=== PATIENT | female | born 1940 | race Caucasian/White ===

== ENCOUNTER 2020-12-30 12:28 | Emergency (ER) | payer MEDICARE, OTHER, SELFPAY ==
[2020-12-30 12:34] VITALS: BP 137/68; PULSE 76; RESP 18; TEMP 36.7; O2SAT 95
[2020-12-30 15:45] VITALS: BP 168/121; PULSE 88; O2SAT 98
--- NOTE | 2020-12-30 15:54 | CTR_ITS ---
PROCEDURE INFORMATION: Exam: CT Lumbar Spine Without Contrast Exam date and time: 12/30/2020 3:54 PM Age: 80 years old Clinical indication: Injury or trauma; Fall; Blunt trauma (contusions or hematomas); Additional info: Fall with lumbar pain TECHNIQUE: Imaging protocol: Computed tomography images of the lumbar spine without contrast. Radiation optimization: All CT scans at this facility use at least one of these dose optimization techniques: automated exposure control; mA and/or kV adjustment per patient size (includes targeted exams where dose is matched to clinical indication); or iterative reconstruction. COMPARISON: CT thoracic spin wo con* [id number] 12/30/2020 4:05 PM RADIATION DOSE METRICS: Total DLP (mGy-cm): 840.03 FINDINGS: Vertebrae: Chronic superior endplate compression fracture of L1. Vertebral body heights are otherwise preserved in the lumbar spine. No acute fracture demonstrated. Discs/Spinal canal/Neural foramina: Degenerative disc narrowing at L5-S1. No large disc protrusions are identified at any lumbar level. No severe spinal canal or severe neural foraminal stenosis demonstrated. Soft tissues: The paraspinous soft tissues appear unremarkable. CT/CT lumbar spine wo con* [id number] IMPRESSION: 1. Chronic superior endplate compression fracture of L1. 2. No acute fracture demonstrated. Radiation Dose CTDIVOL = (mGy): DLP = 840.03 (mGy-cm)
--- NOTE | 2020-12-30 15:54 | CTR_ITS ---
PROCEDURE INFORMATION: Exam: CT Head Without Contrast Exam date and time: 12/30/2020 3:54 PM Age: 80 years old Clinical indication: Injury or trauma; Fall; Blunt trauma (contusions or hematomas); Additional info: Fall and on blood thinners TECHNIQUE: Imaging protocol: Computed tomography of the head without contrast. Radiation optimization: All CT scans at this facility use at least one of these dose optimization techniques: automated exposure control; mA and/or kV adjustment per patient size (includes targeted exams where dose is matched to clinical indication); or iterative reconstruction. COMPARISON: CTA Head/Neck [id number] 05/25/2015 6:44 PM RADIATION DOSE METRICS: Total DLP (mGy-cm): 712.87 FINDINGS: Brain: Advanced parenchymal volume loss noted. 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 No intracranial hemorrhage noted. No parenchymal edema identified. Cerebral ventricles: The ventricles are proportional to the sulci. No hydrocephalus is noted. Paranasal sinuses: Visualized sinuses are unremarkable. No fluid levels. Mastoid air cells: Unremarkable as visualized. No mastoid effusion. Bones/joints: Unremarkable. No acute fracture. Soft tissues: The soft tissues appear unremarkable. CT/CT head wo con* [id number] IMPRESSION: 1. Chronic intracranial changes are present. 2. No acute intracranial abnormality is noted. No intracranial hemorrhage. Radiation Dose CTDIVOL = (mGy): DLP = 712.87 (mGy-cm)
--- NOTE | 2020-12-30 15:54 | XRR_ITS ---
PROCEDURE INFORMATION: Exam: XR Left Hip Exam date and time: 12/30/2020 3:54 PM Age: 80 years old Clinical indication: Hip pain; Left hip; Additional info: Fall with hip pain TECHNIQUE: Imaging protocol: XR Left hip. Views: 2 or 3 views hip with pelvis when performed. COMPARISON: CT lumbar spine wo con* [id number] 12/30/2020 4:10 PM FINDINGS: Bones/joints: Status post left hip arthroplasty. No hip dislocation. Subtle lucency in the cortex of the greater trochanter of the left femur, adjacent to the prosthesis, on the lateral view. This may represent a small nondisplaced fracture. Soft tissues: The soft tissues appear unremarkable. XR/XR hip LT 2-3V wo/w pel* [id number] IMPRESSION: 1. Status post left hip arthroplasty. 2. Subtle lucency in the cortex of the greater trochanter of the left femur, adjacent to the prosthesis, on the lateral view. This may represent a small nondisplaced fracture. Consider CT of the left hip to confirm.
--- NOTE | 2020-12-30 15:54 | CTR_ITS ---
PROCEDURE INFORMATION: Exam: CT Thoracic Spine Without Contrast Exam date and time: 12/30/2020 3:54 PM Age: 80 years old Clinical indication: Injury or trauma; Fall; Blunt trauma (contusions or hematomas); Additional info: Fall with mid back pain TECHNIQUE: Imaging protocol: Computed tomography images of the thoracic spine without contrast. Radiation optimization: All CT scans at this facility use at least one of these dose optimization techniques: automated exposure control; mA and/or kV adjustment per patient size (includes targeted exams where dose is matched to clinical indication); or iterative reconstruction. COMPARISON: No relevant prior studies available. RADIATION DOSE METRICS: Total DLP (mGy-cm): 654.97 FINDINGS: Vertebrae: Mild acute compression fracture of T11. No additional acute thoracic spine fractures are noted. Discs/Spinal canal/Neural foramina: Intervertebral disc heights are preserved. No large disc protrusions are demonstrated. No spinal canal stenosis. Other bones/joints: There is a mild old superior compression fracture of T9. Mild to moderate old L1 compression fracture noted. Soft tissues: The paraspinous soft tissues are unremarkable. CT/CT thoracic spin wo con* [id number] IMPRESSION: 1. Mild acute compression fracture of T11. 2. No additional acute fractures are noted. Radiation Dose CTDIVOL = (mGy): DLP = 654.97 (mGy-cm)
--- NOTE | 2020-12-30 15:54 | XRR_ITS ---
PROCEDURE INFORMATION: Exam: XR Left Femur Exam date and time: 12/30/2020 3:54 PM Age: 80 years old Clinical indication: Pain; Thigh; Left; Additional info: Fall with thigh pain TECHNIQUE: Imaging protocol: XR Left femur. Views: 2 views. COMPARISON: No relevant prior studies available. FINDINGS: Bones/joints: Left hip prosthesis. No fracture or other acute osseous abnormality. Subtle lucency in the cortex of the greater trochanter of the left femur, adjacent to the prosthesis, on the lateral view. This may represent a small nondisplaced fracture. The mid/distal left femur appears unremarkable. Soft tissues: The soft tissues appear unremarkable. The soft tissues appear unremarkable. XR/XR femur LT min 2V* [id number] IMPRESSION: 1. Subtle lucency in the cortex of the greater trochanter of the left femur, adjacent to the prosthesis, on the lateral view. This may represent a small nondisplaced fracture. Consider CT of the left hip to confirm. 2. The mid/distal left femur appears unremarkable.
--- NOTE | 2020-12-30 15:56 | W.ED.FALL ---
HPI - Fall General: Chief Complaint: Fall Stated Complaint: FALL YESTERDAY Time Seen by Provider: 12/30/20 15:40 History of Present Illness: HPI Narrative: Patient is a 80-year-old female comes to the ED after fall. Patient had fall yesterday and is complaining of having some back pain, left hip and thigh pain. Fall occurred while she was at home going to fruit or nut picker a dog food bowl in her garage. She says she lost her balance and fell onto the concrete garage floor landing on left side. She rates the pain a 10 out of 10 in her left leg if she tries to weight-bear. She took some Tylenol several hours ago before arrival to the ED. She denies any loss of consciousness, headache or neck pain. Patient is on a blood thinner. Her pain and her leg starts at her hip and then goes down into her left thigh. Her back pain is bilaterally and located in the lumbar and thoracic back region. Patient also has a skin tear on left elbow. Pt lives at home alone, but lives next to daughter and family can check in on her. Associated symptoms-after fall: Denies abdominal pain, chest pain, headache(s), hematuria or neck pain Review of Systems Const: Denies: fever(s), chills or fatigue Eyes: Denies: change in vision or eye discomfort ENMT: Denies: throat pain, odynophagia, nasal discharge or nasal congestion Card: Denies: chest pain, palpitations, edema, swelling of feet/ankles, dyspnea on exertion or orthopnea Resp: Denies: dyspnea, productive cough or non-productive cough GI: Denies: abdominal pain, nausea, vomiting, diarrhea, constipation or hematochezia : Denies: flank pain, dysuria or hematuria Musc: Reports: back pain and extremity pain (left hip and thigh); Denies: neck pain or extremity swelling Skin/Breast: Reports: new lesions (Skin tear to left elbow); Denies: rash Neuro: Denies: headache(s), numbness in extremities or weakness in extremities PFS ED PFSH: Medical History Anticoagulation adequate Xarelto Arthritis Atrial fibrillation Cognitive dysfunction CVA (cerebral vascular accident) Diarrhea Essential hypertension Hyperlipidemia Temporal arteritis TIA (transient ischemic attack) Tobacco abuse Weight loss Surgical History S/P knee replacement S/P tonsillectomy S/P tubal ligation Family History Father CAD (coronary artery disease) Mother CAD (coronary artery disease) Other Cancer Hypertension Social History Smoking and tobacco status: current every day smoker cigarettes Alcohol intake: current Alcohol intake frequency: 0-2 Drinks per Day Alcohol type: beer Lives independently: Yes Marital status: / Current occupational status: retired Current gender identity: Female Katelyn/Church: [employer] Physical Exam Const: COMMON NORMALS: no acute distress, patient oriented x3 and alert GENERAL APPEARANCE: cooperative and comfortable HENMT: COMMON NORMALS: normocephalic HEAD & SCALP: normocephalic MOUTH: Normal oral and palatal mucosa present THROAT: posterior oropharynx normal and uvula midline Neck/C-Spine: COMMON NORMALS: supple GENERAL: Yes normal visual inspection Resp: COMMON NORMALS: normal respiratory effort, No retractions, No use of accessory muscles and clear to auscultation bilaterally AUSCULTATION: clear to auscultation bilaterally Cardio: COMMON NORMALS: regular rate, regular rhythm, S1 normal heart sound present, S2 normal heart sound present, No gallops present (Cardio), No clicks present (Cardio), No murmurs present (Cardio) and Peripheral pulses 2+ throughout RATE: regular rate RHYTHM: regular rhythm HEART SOUNDS: S1 normal heart sound present and S2 normal heart sound present PERIPHERAL PULSES: Peripheral pulses 2+ throughout GI: COMMON NORMALS: Normal to inspection, nondistended, normoactive bowel sounds present, Soft to palpation, non-tender and no masses PALPATION: Yes Soft to palpation : COMMON NORMALS: Yes no CVA tenderness BLADDER/KIDNEY EXAM: Yes no CVA tenderness Back/Pelvis: COMMON NORMALS: no CVA tenderness THORACIC SPINE/UPPER BACK: Yes pain with ROM, Yes thoracic spinal tenderness T-spine tenderness location: T9, T10 and T11 and Yes paraspinal muscle tenderness Thoracic paraspinal muscle tenderness: bilateral Bilateral thoracic paraspinal muscle tenderness: T7, T8 and T9 LUMBAR SPINE/LOWER BACK: Yes pain with ROM, Yes lumbar spinal tenderness Lumbar spinal tenderness location: L1 and L2 and Yes paraspinal muscle tenderness Extremity: NARRATIVE EXTREMITY EXAM: Left upper extremity?skin tear of the elbow. Full range of motion no deformity or tenderness to palpation. Neurovascular intact. Left Lower extremity-left leg appears normal and is not shortened or externally rotated. Tenderness upon palpation of left thigh and greater trochanteric of left hip. Limited range of motion in left leg due to pain. GENERAL: Yes normal exam except as noted Neuro: COMMON NORMALS: patient oriented x3, CN's II-XII intact bilaterally, moves all extremities, no focal motor deficits and no sensory deficits noted SENSORIUM/ORIENTATION: Yes alert SPEECH: speech normal GAIT: Yes Unable to assess gait (due to left leg pain) SENSORY EXAM: Yes extremities (intact) MOTOR EXAM: 5/5 motor strength present throughout Skin: GENERAL SKIN EXAM: dry skin Course Vital Signs: Vital signs: Vital Signs Temperature 98.1 F 12/30/20 12:34 Pulse Rate 86 12/30/20 16:39 Respiratory Rate 18 12/30/20 12:34 Blood Pressure 169/95 12/30/20 16:39 Pulse Oximetry 98 12/30/20 16:39 MDM - Fall MDM Narrative: Medical decision making narrative: Patient is a 80-year-old female comes to the ED after having a fall yesterday at home. Patient is on a blood thinner but denies any head trauma or loss of consciousness. She was in her garage and lost balance when grabbing a dog food bowl causing her to land on her left side. Her main complaint for pain is in the mid and lower back along with left hip and left femur. Patient says she cannot weight-bear on left leg due to pain. Left leg shows no visible deformity she is neurovascular intact. She does have some tenderness upon palpation of the mid and upper thigh and hip. She also has some thoracic and lumbar spinal tenderness. She has a superficial skin tear of her left elbow but has full range of motion of the left arm with no pain. Neuro exam is normal. Pt case was handed over to Yandel Posada NP and I told him we are waiting on image results and then can make DC plan. Discharge Plan Discharge Prescriptions: No Action Xarelto 20 mg tablet 20 mg PO DAILY@1730 RF: 0 sotalol 80 mg tablet 80 mg PO BID 90 Days Qty: 180 RF: 3 atorvastatin 80 mg tablet 80 mg PO BEDTIME RF: 0 Tylenol Extra Strength 500 mg Tablet 1,000 mg PO Q4H PRN (Reason: Pain) RF: 0 losartan 25 mg tablet 25 mg PO QAM RF: 0 Coding Level of Care Code ED [employer] for Chg Fwd Exam Comprehensive
[2020-12-30 16:39] VITALS: BP 169/95; PULSE 86; O2SAT 98
[2020-12-30] MEDS: HYDROcodone-acetaminophen 5-325 mg Tablet 1 TAB PO (16:41)
--- NOTE | 2020-12-30 17:34 | CTR_ITS ---
PROCEDURE INFORMATION: Exam: CT Left Lower Extremity Without Contrast, Hip Exam date and time: 12/30/2020 5:34 PM Age: 80 years old Clinical indication: Pain and injury or trauma; Fall; Blunt trauma; Hip; Left; Injury date: 12/29/20; Prior surgery; Additional info: Possible fracture, radiologist recommended TECHNIQUE: Imaging protocol: CT of the Left lower extremity without contrast was performed. Exam focused on the hip. Radiation optimization: All CT scans at this facility use at least one of these dose optimization techniques: automated exposure control; mA and/or kV adjustment per patient size (includes targeted exams where dose is matched to clinical indication); or iterative reconstruction. COMPARISON: CR (PELVIS, ) 12/30/2020 4:23 PM RADIATION DOSE METRICS: Total DLP (mGy-cm): 778.57 FINDINGS: Bones/joints: Left hip prosthesis noted. No left hip dislocation. There is a nondisplaced fracture of the greater tuberosity of the left femur. This is located adjacent to the femoral component of the prosthesis. There is no jaquan prosthetic loosening demonstrated. Soft tissues: There is subcutaneous edema overlying the left hip. The musculature appears unremarkable. CT/CT hip LT wo con* [id number] IMPRESSION: 1. Left hip prosthesis noted. 2. There is a nondisplaced acute fracture of the greater tuberosity of the left femur. This is located adjacent to the femoral component of the prosthesis. There is no jaquan prosthetic loosening demonstrated. Radiation Dose CTDIVOL = (mGy): DLP = 778.57 (mGy-cm)
[2020-12-30 18:41] VITALS: BP 170/96; PULSE 84; O2SAT 97
--- NOTE | 2020-12-30 19:49 | W.ED.FALL ---
HPI - Fall General: Chief Complaint: Fall Stated Complaint: FALL YESTERDAY Time Seen by Provider: 12/30/20 15:40 [facility] PFSH: Medical History Anticoagulation adequate Xarelto Arthritis Atrial fibrillation Cognitive dysfunction CVA (cerebral vascular accident) Diarrhea Essential hypertension Hyperlipidemia Temporal arteritis TIA (transient ischemic attack) Tobacco abuse Weight loss Surgical History S/P knee replacement S/P tonsillectomy S/P tubal ligation Family History Father CAD (coronary artery disease) Mother CAD (coronary artery disease) Other Cancer Hypertension Social History Smoking and tobacco status: current every day smoker cigarettes Alcohol intake: current Alcohol intake frequency: 0-2 Drinks per Day Alcohol type: beer Lives independently: Yes Marital status: / Current occupational status: retired Current gender identity: Female Katelyn/Protestant: [employer] Vital Signs: Vital signs: Vital Signs Temperature 98.1 F 12/30/20 12:34 Pulse Rate 84 12/30/20 18:41 Respiratory Rate 18 12/30/20 12:34 Blood Pressure 170/96 12/30/20 18:41 Pulse Oximetry 97 12/30/20 18:41 MDM - Fall MDM Narrative: Medical decision making narrative: X-ray showed possible fracture left femur. CT is ordered confirm fracture left femur. Results were shared with Dr. Cohn who said is not operable fracture center home weightbearing as tolerated. I shared this with patient and family member. Patient states she wants to go home that she walked on okay yesterday even though it hurt she does not want crutches is willing to a wheelchair. Daughter spoke with her sister and I talked with both him and agreed that okay to go home with pain medicine will contact Joanna De Los Santos in the morning to set up rehab. Also discussed case with Dr. Hanson agreed with plan. Discharge Plan Discharge Patient Disposition: Home Clinical Impression: Closed femur fracture Qualifiers: Encounter type: initial encounter Femur location: unspecified portion of femur Fracture morphology: other fracture Laterality: left Qualified Code(s): S72.8X2A - Other fracture of left femur, initial encounter for closed fracture Condition: Stable Prescriptions: New tramadol 50 mg tablet 50 mg PO TID PRN (Reason: pain) Qty: 20 RF: 0 No Action Xarelto 20 mg tablet 20 mg PO DAILY@1730 RF: 0 sotalol 80 mg tablet 80 mg PO BID 90 Days Qty: 180 RF: 3 atorvastatin 80 mg tablet 80 mg PO BEDTIME RF: 0 Tylenol Extra Strength 500 mg Tablet 1,000 mg PO Q4H PRN (Reason: Pain) RF: 0 losartan 25 mg tablet 25 mg PO QAM RF: 0 Discharge Orders: Discharge ED (Routine); Ordered 12/30/20 Ordered By: Yandel Mendez Referrals: Rosy De Los Santos FNP [Primary Care Provider] - Discharge Diet: Usual diet Discharge Activity: Increase activity as tolerated, Use walker/crutches as instructed and Wheelchair as instructed Patient Instructions: Leg Fracture (ED), Opioid Safety Activity Restrictions/Additional Instructions: Follow-up with medical provider as directed. Take medications as prescribed. Return to the ER or your medical provider if condition worsens. Please read and understand discharge instructions. If any questions ask please. Weightbearing as tolerated to the left leg. Fractures is an inoperable fracture. Can use crutches and/or wheelchair. Take pain medication as directed can apply ice to area. Do not stay alone. Contact Joanna De Los Santos tomorrow and discuss physical therapy and home rehab and possibly back in a hospital bed. Can return here if worsening symptoms. Coding Level of Care Code ED Reading Efficiency Course Director for Britta Blankenship
[2020-12-30 21:00] VITALS: BP 170/80; PULSE 79; O2SAT 97
[2020-12-30] MEDS: TRAMadol 50 mg Tablet 100 MG PO (21:00)
[2020-12-30 21:52] VITALS: BP 170/80; PULSE 79; RESP 18; O2SAT 97
== END 2020-12-30 21:40 | disposition home or self-care (01) ==
PROVIDERS: Emergency Provider Nurse Practitioner Family; PCP Nurse Practitioner Family
DX: M54.9 Dorsalgia, unspecified (principal); M25.552 Pain in left hip; Z86.73 Personal history of transient ischemic attack (TIA), and cerebral infarction without residual deficits; I10 Essential (primary) hypertension; E78.5 Hyperlipidemia, unspecified; F17.210 Nicotine dependence, cigarettes, uncomplicated
CPT/HCPCS: 70450; 72128; 72131; 73502; 73552; 73700; 99283

== ENCOUNTER 2021-01-16 13:33 | Inpatient (IN) | payer MEDICARE, OTHER, SELFPAY ==
[2021-01-16] VITALS (13 sets, daily range): BP systolic 149–214; BP diastolic 72–108; PULSE 74–104; RESP 15–25; TEMP 36.7–37.2; O2SAT 91–99; BMI 20.1
--- NOTE | 2021-01-16 14:12 | XRR_ITS ---
PROCEDURE INFORMATION: Exam: XR Chest Exam date and time: 01/16/2021 2:12 PM Age: 80 years old Clinical indication: Cough and dyspnea; Additional info: Dyspnea/cough TECHNIQUE: Imaging protocol: XR of the chest. Views: 1 view. COMPARISON: CR Chest 1 [place] [id number] 05/25/2015 5:49 PM FINDINGS: Lungs: Blunting of right costophrenic angle which may represent a trace pleural effusion. Pleural spaces: See Lungs finding. Heart/Mediastinum: Unremarkable. No cardiomegaly. Bones/joints: Degenerative changes of the thoracic spine and bilateral shoulder joints. XR/XR chest 1V portable [id number] IMPRESSION: Blunting of right costophrenic angle which may represent trace pleural effusion.
--- NOTE | 2021-01-16 14:24 | ECG_ITS ---
[facility] Test Date: 2021-01-16 Pat Name: Radha Gonzalez Department: Room: Gender: Female Shake Maker: : 1940 Requested By: Tip Rooney Order Number: [id number] Maya MD: Diana Hudson M.D. Measurements Intervals [place] Rate: 104 P: NE: QRS: 48 QRSD: 76 T: 62 QT: 347 QTc: 457 Interpretive Statements ATRIAL FIBRILLATION WITH RAPID VENTRICULAR RESPONSE ABNORMAL RHYTHM ECG Compared to ECG 05/25/2015 16:24:42 Sinus rhythm no longer present First degree AV block no longer present Electronically Signed On 01-16-2021 20:37:20 CDT by Diana Hudson M.D. [email or web address]
--- NOTE | 2021-01-16 14:33 | ED_ITS ---
Documented by User: Tip Ramirez DO 01/17/21 06:29 HPI - SOB/Dyspnea General: Chief Complaint: Shortness of Breath/Dyspnea Stated Complaint: SOB Time Seen by Provider: 01/16/21 13:49 History of Present Illness: HPI Narrative: 10-year-old female presents emergency room from local [facility] complaining of shortness of breath and hypoxia. She has been increasingly congested. Her oxygen sats were reported to be in the 60s at the prison currently she is on 4 L by nasal cannula and maintaining in the low 90s. She recently had a femur fracture and was admitted to the prison. She has been vaccinated for Covid but does not been known to have Covid. She does have some complaint of chest pain at this time. No radiation of the pain. MD elicited complaint: shortness of breath and cough Pertinent past history: COPD Onset (ago): hour(s) Timing: constant Severity: severe Exacerbating factors: exertion and coughing Relieving factors: oxygen and rest Known history of: COPD Associated symptoms: Reports chest congestion, chest pain, cough and orthopnea; Deny abdominal pain, diaphoresis, dizziness, extremity pain, fever(s), hemoptysis, lightheadedness, myalgias, nausea, palpitations, paresthesias, polydipsia, polyuria, rash, sense of impending doom, syncope or vomiting Treatment prior to arrival: oxygen Review of Systems Const: Denies: fever(s) or diaphoresis ENMT: Denies: throat pain, ear or mastoid pain, nasal discharge or nasal congestion Card: Reports: chest pain and orthopnea; Denies: palpitations, lightheadedness or syncope Resp: Reports: chest congestion; Denies: hemoptysis GI: Denies: abdominal pain, nausea or vomiting : Denies: flank pain, difficulty voiding, dysuria, urinary frequency or urinary urgency Musc: Denies: extremity pain Skin/Breast: Denies: rash or pruritus Neuro: Denies: dizziness Endo: Denies: polyuria or polydipsia PFSH ED PFSH: Medical History Anticoagulation adequate Xarelto Arthritis Atrial fibrillation Cognitive dysfunction CVA (cerebral vascular accident) Diarrhea Essential hypertension Hyperlipidemia Temporal arteritis TIA (transient ischemic attack) Tobacco abuse Weight loss Surgical History S/P knee replacement S/P tonsillectomy S/P tubal ligation Family History Father CAD (coronary artery disease) Mother CAD (coronary artery disease) Other Cancer Hypertension Social History Smoking and tobacco status: current every day smoker cigarettes Alcohol intake: current Alcohol intake frequency: 0-2 Drinks per Day Alcohol type: beer Lives independently: Yes Marital status: / Current occupational status: retired Current gender identity: Female Katelyn/Shinto: Mosque Physical Exam Const: ORIENTATION/CONSCIOUSNESS: Yes awake HENMT: COMMON NORMALS: normocephalic, atraumatic and hearing grossly normal bilaterally HEAD & SCALP: normocephalic and atraumatic Resp: EFFORT & INSPECTION: Yes audible wheezes AUSCULTATION: rhonchi and wheezes Cardio: COMMON NORMALS: regular rate, regular rhythm and No murmurs present (Cardio) RATE: regular rate RHYTHM: regular rhythm GI: COMMON NORMALS: Soft to palpation and No hepatosplenomegaly present AUSCULTATION: Yes normoactive bowel sounds PALPATION: Yes Soft to palpation, No Tenderness to palpation present (GI), No Guarding due to palpation present (GI) and Yes No hepatosplenomegaly present Extremity: COMMON NORMALS: normal to inspection, capillary refill normal, no clubbing, cyanosis or edema, no calf tenderness and no pedal edema Skin: COMMON NORMALS: no rashes or lesions noted GENERAL SKIN EXAM: no rashes or lesions noted Course Vital Signs: Vital signs: Vital Signs Temperature 98.0 F 01/17/21 03:35 Pulse Rate 66 01/17/21 04:48 Respiratory Rate 19 H 01/17/21 03:35 Blood Pressure 134/61 01/17/21 03:35 Pulse Oximetry 98 01/17/21 03:35 MDM - SOB/Dyspnea MDM Narrative: Medical decision making narrative: Labs pending. Care turned over to Dr. Hanson at change of shift see his notes for final diagnosis and disposition. Lab Data: Labs: Lab Results 09/23/21 09/23/21 09/23/21 14:37 15:05 17:35 WBC RBC Hgb Hct MCV MCH MCHC RDW Plt Count MPV Neut % (Auto) Lymph % (Auto) [place] % (Auto) Eos % (Auto) Baso % (Auto) Neut # (Auto) Lymph # (Auto) [place] # (Auto) Eos # (Auto) Baso # (Auto) Nucleated RBC % (a uto) Nucleated RBCs # Specimen Type Arterial Sample Site Radial, left ABG pH 7.37 (7.35-7.45) ABG pCO2 45.4 mmHg H mmHg (35-45) ABG pO2 61.2 mmHg L mmHg (80.0-100.0) ABG HCO3 26.1 mmol/L H mmo l/L (22-26) ABG O2 Saturation 91.1 ABG Base Excess 0.4 mmol/L mmol/L (-2.0-2.0) Angel Test Pos A-a O2 Gradient 18.2 mmHg H mmHg (5-10) Hematocrit 31.4 % L % (37-47) Hgb O2 Saturation 88.9 % L % (95-100) Carboxyhemoglobin 1.5 %THgb %THgb (0.4-20.1) Methemoglobin 0.9 % % (0.4-1.5) Total Hemoglobin 10.2 g/dL L g/dL (12-16) Sodium 142.0 mmol/L mmol /L (131-143) Potassium 5.0 mmol/L mmol/L (3.5-5.0) Glucose 99.0 mg/dL mg/dL (70-115) Ionized Calcium 1.2 mmol/L mmol/L (1.1-1.4) O2 Delivery Device Nc O2 Liters/Min 4.0 % % FiO2 36.0 % % Celluloid Trimmer ID Monro Chloride Carbon Dioxide Anion Gap BUN Creatinine GFR Calculation POC Glucose Calculated Osmolal ity Lactic Acid 1.0 mmol/L mmol/L (0.5-2.2) Calcium Total Bilirubin AST ALT Alkaline Phosphata se Creatine Kinase Troponin T Baselin e Troponin T 120 Min [place] Troponin T NT-Pro-B Natriuret Pep Total Protein Albumin Globulin SARS-CoV-2 Ag (Rap id) Negative (Negative) 01/16/21 01/16/21 01/16/21 17:35 17:35 17:35 WBC 10.0 10^3/uL 10^3 /uL (4.0-10.0) RBC 3.27 10^6/uL L 10 ^6/uL (4.1-5.3) Hgb 11.4 g/dL L g/dL (11.5-15.3) Hct 35.7 % L % (37.0-47.0) MCV 109.2 fl H fl (81-99) MCH 34.9 pg H pg (28.0-34.0) MCHC 31.9 g/dL g/dL (30.0-36.0) RDW 14.8 % % (12.1-15.1) Plt Count 412 10^3/cmm H 10 ^3/cmm (130-400) MPV 11.2 fL H fL (7.4-10.4) Neut % (Auto) 91.1 % % Lymph % (Auto) 3.9 % % [place] % (Auto) 4.2 % % Eos % (Auto) 0.0 % % Baso % (Auto) 0.3 % % Neut # (Auto) 9.12 10^3/uL H 10 ^3/uL (1.8-7.7) Lymph # (Auto) 0.4 10^3/uL L 10^ 3/uL (0.8-4.8) [place] # (Auto) 0.4 10^3/uL 10^3/ uL (0.2-0.9) Eos # (Auto) 0.0 10^3/uL 10^3/ uL (0.0-0.8) Baso # (Auto) 0.0 10^3/uL 10^3/ uL (0.0-0.1) Nucleated RBC % (a uto) 0 % % Nucleated RBCs # 0.0 /100WBC /100W BC Specimen Type Sample Site ABG pH ABG pCO2 ABG pO2 ABG HCO3 ABG O2 Saturation ABG Base Excess Angel Test A-a O2 Gradient Hematocrit Hgb O2 Saturation Carboxyhemoglobin Methemoglobin Total Hemoglobin Sodium 141 mmol/L mmol/L (136-145) Potassium 5.0 mmol/L mmol/L (3.5-5.1) Glucose 106 mg/dL mg/dL (65-115) Ionized Calcium O2 Delivery Device O2 Liters/Min FiO2 Celluloid Trimmer ID Chloride 103 mmol/L mmol/L (98-107) Carbon Dioxide 25 mmol/L mmol/L (22-29) Anion Gap 18.0 (5-19) BUN 26 mg/dL H mg/dL (8-23) Creatinine 1.0 mg/dL H mg/dL (0.5-0.9) GFR Calculation Not Reportable POC Glucose Calculated Osmolal ity 297 mOsm/kg H mOs m/kg (285-295) Lactic Acid Calcium 9.0 mg/dL mg/dL (8.5-10.5) Total Bilirubin 0.7 mg/dL mg/dL (0.15-1.2) AST 22 U/L U/L (0-32) ALT 11 U/L U/L (0-33) Alkaline Phosphata se 253 IU/L H IU/L (35-105) Creatine Kinase 50 U/L U/L (26-192) Troponin T Baselin e 34 ng/L H ng/L (0-10) Troponin T 120 Min [place] Troponin T NT-Pro-B Natriuret Pep 5842 pg/mL H pg/m L (0-450) Total Protein 7.3 g/dL g/dL (6.6-8.7) Albumin 3.5 g/dL g/dL (3.5-5.2) Globulin 3.8 g/dL g/dL (1.3-4.6) SARS-CoV-2 Ag (Rap id) 01/16/21 01/16/21 18:31 20:00 WBC RBC Hgb Hct MCV MCH MCHC RDW Plt Count MPV Neut % (Auto) Lymph % (Auto) [place] % (Auto) Eos % (Auto) Baso % (Auto) Neut # (Auto) Lymph # (Auto) [place] # (Auto) Eos # (Auto) Baso # (Auto) Nucleated RBC % (a uto) Nucleated RBCs # Specimen Type Sample Site ABG pH ABG pCO2 ABG pO2 ABG HCO3 ABG O2 Saturation ABG Base Excess Angel Test A-a O2 Gradient Hematocrit Hgb O2 Saturation Carboxyhemoglobin Methemoglobin Total Hemoglobin Sodium Potassium Glucose Ionized Calcium O2 Delivery Device O2 Liters/Min FiO2 Celluloid Trimmer ID Chloride Carbon Dioxide Anion Gap BUN Creatinine GFR Calculation POC Glucose 110 mg/dL mg/dL (70-110) Calculated Osmolal ity Lactic Acid Calcium Total Bilirubin AST ALT Alkaline Phosphata se Creatine Kinase Troponin T Baselin e Troponin T 120 Min [place] 30.46 ng/L H ng/L (0-10) Delta Troponin T -3.54 ABS# L ABS# (0-10) NT-Pro-B Natriuret Pep Total Protein Albumin Globulin SARS-CoV-2 Ag (Rap id) Discharge Plan Discharge Patient Disposition: Admitted As Inpatient Admit Provider: Maddison Saldana Clinical Impression: Congestive heart failure Condition: Stable Coding Level of Care Code ED Computer Systems Architect for Chg Fwd Exam Detailed Documented by User: Evin Hanson MD 01/16/21 19:35 HPI - SOB/Dyspnea General: Chief Complaint: Shortness of Breath/Dyspnea Stated Complaint: SOB Time Seen by Provider: 01/16/21 13:49 PFSH ED PFSH: Medical History Anticoagulation adequate Xarelto Arthritis Atrial fibrillation Cognitive dysfunction CVA (cerebral vascular accident) Diarrhea Essential hypertension Hyperlipidemia Temporal arteritis TIA (transient ischemic attack) Tobacco abuse Weight loss Surgical History S/P knee replacement S/P tonsillectomy S/P tubal ligation Family History Father CAD (coronary artery disease) Mother CAD (coronary artery disease) Other Cancer Hypertension Social History Smoking and tobacco status: current every day smoker cigarettes Alcohol intake: current Alcohol intake frequency: 0-2 Drinks per Day Alcohol type: beer Lives independently: Yes Marital status: / Current occupational status: retired Current gender identity: Female Katelyn/Shinto: Mosque Course Vital Signs: Vital signs: Vital Signs Temperature 98.0 F 01/17/21 03:35 Pulse Rate 66 01/17/21 04:48 Respiratory Rate 19 H 01/17/21 03:35 Blood Pressure 134/61 01/17/21 03:35 Pulse Oximetry 98 01/17/21 03:35 MDM - SOB/Dyspnea MDM Narrative: Medical decision making narrative: Patient presents here shortness of breath likely from congestive heart failure. Patient is requiring more oxygen has an elevated BNP. I took patient over from Dr. Roberto he started diurese her. I spoke to hospitalist and will admit at this time. Lab Data: Labs: Lab Results 01/16/21 01/16/21 01/16/21 14:37 15:05 17:35 WBC RBC Hgb Hct MCV MCH MCHC RDW Plt Count MPV Neut % (Auto) Lymph % (Auto) [place] % (Auto) Eos % (Auto) Baso % (Auto) Neut # (Auto) Lymph # (Auto) [place] # (Auto) Eos # (Auto) Baso # (Auto) Nucleated RBC % (a uto) Nucleated RBCs # Specimen Type Arterial Sample Site Radial, left ABG pH 7.37 (7.35-7.45) ABG pCO2 45.4 mmHg H mmHg (35-45) ABG pO2 61.2 mmHg L mmHg (80.0-100.0) ABG HCO3 26.1 mmol/L H mmo l/L (22-26) ABG O2 Saturation 91.1 ABG Base Excess 0.4 mmol/L mmol/L (-2.0-2.0) Angel Test Pos A-a O2 Gradient 18.2 mmHg H mmHg (5-10) Hematocrit 31.4 % L % (37-47) Hgb O2 Saturation 88.9 % L % (95-100) Carboxyhemoglobin 1.5 %THgb %THgb (0.4-20.1) Methemoglobin 0.9 % % (0.4-1.5) Total Hemoglobin 10.2 g/dL L g/dL (12-16) Sodium 142.0 mmol/L mmol /L (131-143) Potassium 5.0 mmol/L mmol/L (3.5-5.0) Glucose 99.0 mg/dL mg/dL (70-115) Ionized Calcium 1.2 mmol/L mmol/L (1.1-1.4) O2 Delivery Device Nc O2 Liters/Min 4.0 % % FiO2 36.0 % % Celluloid Trimmer ID [place] Chloride Carbon Dioxide Anion Gap BUN Creatinine GFR Calculation POC Glucose Calculated Osmolal ity Lactic Acid 1.0 mmol/L mmol/L (0.5-2.2) Calcium Total Bilirubin AST ALT Alkaline Phosphata se Creatine Kinase Troponin T Baselin e Troponin T 120 Min [place] Troponin T NT-Pro-B Natriuret Pep Total Protein Albumin Globulin SARS-CoV-2 Ag (Rap id) Negative (Negative) 01/16/21 01/16/21 01/16/21 17:35 17:35 17:35 WBC 10.0 10^3/uL 10^3 /uL (4.0-10.0) RBC 3.27 10^6/uL L 10 ^6/uL (4.1-5.3) Hgb 11.4 g/dL L g/dL (11.5-15.3) Hct 35.7 % L % (37.0-47.0) MCV 109.2 fl H fl (81-99) MCH 34.9 pg H pg (28.0-34.0) MCHC 31.9 g/dL g/dL (30.0-36.0) RDW 14.8 % % (12.1-15.1) Plt Count 412 10^3/cmm H 10 ^3/cmm (130-400) MPV 11.2 fL H fL (7.4-10.4) Neut % (Auto) 91.1 % % Lymph % (Auto) 3.9 % % [place] % (Auto) 4.2 % % Eos % (Auto) 0.0 % % Baso % (Auto) 0.3 % % Neut # (Auto) 9.12 10^3/uL H 10 ^3/uL (1.8-7.7) Lymph # (Auto) 0.4 10^3/uL L 10^ 3/uL (0.8-4.8) [place] # (Auto) 0.4 10^3/uL 10^3/ uL (0.2-0.9) Eos # (Auto) 0.0 10^3/uL 10^3/ uL (0.0-0.8) Baso # (Auto) 0.0 10^3/uL 10^3/ uL (0.0-0.1) Nucleated RBC % (a uto) 0 % % Nucleated RBCs # 0.0 /100WBC /100W BC Specimen Type Sample Site ABG pH ABG pCO2 ABG pO2 ABG HCO3 ABG O2 Saturation ABG Base Excess Angel Test A-a O2 Gradient Hematocrit Hgb O2 Saturation Carboxyhemoglobin Methemoglobin Total Hemoglobin Sodium 141 mmol/L mmol/L (136-145) Potassium 5.0 mmol/L mmol/L (3.5-5.1) Glucose 106 mg/dL mg/dL (65-115) Ionized Calcium O2 Delivery Device O2 Liters/Min FiO2 Celluloid Trimmer ID Chloride 103 mmol/L mmol/L (98-107) Carbon Dioxide 25 mmol/L mmol/L (22-29) Anion Gap 18.0 (5-19) BUN 26 mg/dL H mg/dL (8-23) Creatinine 1.0 mg/dL H mg/dL (0.5-0.9) GFR Calculation Not Reportable POC Glucose Calculated Osmolal ity 297 mOsm/kg H mOs m/kg (285-295) Lactic Acid Calcium 9.0 mg/dL mg/dL (8.5-10.5) Total Bilirubin 0.7 mg/dL mg/dL (0.15-1.2) AST 22 U/L U/L (0-32) ALT 11 U/L U/L (0-33) Alkaline Phosphata se 253 IU/L H IU/L (35-105) Creatine Kinase 50 U/L U/L (26-192) Troponin T Baselin e 34 ng/L H ng/L (0-10) Troponin T 120 Min [place] Troponin T NT-Pro-B Natriuret Pep 5842 pg/mL H pg/m L (0-450) Total Protein 7.3 g/dL g/dL (6.6-8.7) Albumin 3.5 g/dL g/dL (3.5-5.2) Globulin 3.8 g/dL g/dL (1.3-4.6) SARS-CoV-2 Ag (Rap id) 01/16/21 01/16/21 18:31 20:00 WBC RBC Hgb Hct MCV MCH MCHC RDW Plt Count MPV Neut % (Auto) Lymph % (Auto) [place] % (Auto) Eos % (Auto) Baso % (Auto) Neut # (Auto) Lymph # (Auto) [place] # (Auto) Eos # (Auto) Baso # (Auto) Nucleated RBC % (a uto) Nucleated RBCs # Specimen Type Sample Site ABG pH ABG pCO2 ABG pO2 ABG HCO3 ABG O2 Saturation ABG Base Excess Angel Test A-a O2 Gradient Hematocrit Hgb O2 Saturation Carboxyhemoglobin Methemoglobin Total Hemoglobin Sodium Potassium Glucose Ionized Calcium O2 Delivery Device O2 Liters/Min FiO2 Celluloid Trimmer ID Chloride Carbon Dioxide Anion Gap BUN Creatinine GFR Calculation POC Glucose 110 mg/dL mg/dL (70-110) Calculated Osmolal ity Lactic Acid Calcium Total Bilirubin AST ALT Alkaline Phosphata se Creatine Kinase Troponin T Baselin e Troponin T 120 Min [place] 30.46 ng/L H ng/L (0-10) Delta Troponin T -3.54 ABS# L ABS# (0-10) NT-Pro-B Natriuret Pep Total Protein Albumin Globulin SARS-CoV-2 Ag (Rap id) Discharge Plan Discharge Patient Disposition: Admitted As Inpatient Admit Provider: Maddison Saldana Clinical Impression: Congestive heart failure Condition: Stable Coding Level of Care Code ED Computer Systems Architect for Chg Fwd Exam Detailed
[2021-01-16 15:14] LABS: SARS Covid-2 Antigen Negative (Negative)
[2021-01-16 15:17] LABS: ABG PCO2 45.4 mmHg (35-45); ABG PH Result 7.37 (7.35-7.45); Arterial Blood Gas Hematocrit 31.4 % (37-47); Base Excess ABG 0.4 mmol/L (-2.0-2.0); Blood Gas Allen Test Pos; Blood Gas Sample Type Arterial; Carboxyhemoglobin 1.5 %THgb (0.4-20.1); HCO3 ABG 26.1 mmol/L (22-26); HGB O2 Sat 88.9 % (95-100); Ionized Calcium Level - ABG 1.2 mmol/L (1.1-1.4); Methemoglobin 0.9 % (0.4-1.5); Oxygen Saturation ABG 91.1; PO2 ABG 61.2 mmHg (80.0-100.0); Total Hemoglobin 10.2 g/dL (12-16)
[2021-01-16 15:18] LABS: Alveolar-Arterial Oxygen Gradi 18.2 mmHg (5-10); Blood Gas Operator Identificat MONRO; Blood Gas Sample Site Radial, left; Oxygen Device NC
[2021-01-16] MEDS: aspirin 81 mg Chew Tablet 324 MG PO (15:53)
[2021-01-16] MEDS: nitroglycerin 1 gm/inch oint Pkt 1 INCH TOPICAL (15:53)
[2021-01-16] MEDS: amlodipine 10 mg Tablet PO (15:53)
[2021-01-16] MEDS: FUROsemide 10 mg/mL SDV 4mL 40 MG IVP (15:57)
--- NOTE | 2021-01-16 16:02 | PC.NURSE ---
assume care at 1510. Pt needs medication/ekg. pt Swab in process in lab. on 02 at 4L NC. Pt present from home with c/o SOA worsen
[2021-01-16] MEDS: metoprolol tartrate 1 mg/1 mL SDV 5 mL 2.5 MG IVP (16:11)
--- NOTE | 2021-01-16 16:24 | ECG_ITS ---
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 Measurements Intervals [place] Rate: 103 P: 69 [place]: 88 QRS: 52 QRSD: 75 T: 62 QT: 361 QTc: 474 Interpretive Statements SINUS TACHYCARDIA WITH SHORT [place] INTERVAL ABNORMAL RHYTHM ECG Compared to ECG 01/16/2021 15:40:53 Short [place] interval now present Atrial fibrillation no longer present Electronically Signed On 01-16-2021 20:42:43 CDT by Diana Hudson M.D. [id number]
[2021-01-16 18:25] LABS: Basophils % 0.3 %; Hematocrit 35.7 % (37.0-47.0); Hemoglobin 11.4 g/dL (11.5-15.3); Lymphocytes # 0.4 10^3/uL (0.8-4.8); Lymphocytes % 3.9 %; Mean Corpuscular HGB Conc 31.9 g/dL (30.0-36.0); Mean Corpuscular Hemoglobin 34.9 pg (28.0-34.0); Mean Corpuscular Volume 109.2 fl (81-99); Mean Platelet Volume 11.2 fL (7.4-10.4); Monocytes # 0.4 10^3/uL (0.2-0.9); Monocytes % 4.2 %; Neutrophils # 9.12 10^3/uL (1.8-7.7); Neutrophils % 91.1 %; Nucleated Red Blood Cells % 0 %; Platelet Count 412 10^3/cmm (130-400); Red Blood Count 3.27 10^6/uL (4.1-5.3); Red Cell Distribution Width 14.8 % (12.1-15.1)
[2021-01-16 18:35] LABS: Glucose Point of Care 110 mg/dL (70-110)
[2021-01-16 19:05] LABS: Alanine Aminotransferase 11 U/L (0-33); Albumin Level 3.5 g/dL (3.5-5.2); Alkaline Phosphatase 253 IU/L (35-105); Aspartate Amino Transferase 22 U/L (0-32); Blood Urea Nitrogen 26 mg/dL (8-23); Carbon Dioxide 25 mmol/L (22-29); Chloride 103 mmol/L (98-107); Creatine Phosphokinase 50 U/L (26-192); Globulin 3.8 g/dL (1.3-4.6); Glucose 106 mg/dL (65-115); NT Pro B Type Natriuretic Pept 5842 pg/mL (0-450); Osmolality Calculated 297 mOsm/kg (285-295); Sodium 141 mmol/L (136-145); Total Bilirubin 0.7 mg/dL (0.15-1.2); Total Protein 7.3 g/dL (6.6-8.7)
[2021-01-16 19:50] LABS: Troponin(5th) Baseline 34 ng/L (0-10)
--- NOTE | 2021-01-16 19:50 | PC.NURSE ---
Eloina Rosas daughter [phone]. updated on admission.
--- NOTE | 2021-01-16 20:19 | PC.NURSE ---
Report to KARLEE Vazquez
--- NOTE | 2021-01-16 20:24 | ECG_ITS ---
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 Measurements Intervals [place] Rate: 78 P: 85 [place]: 174 QRS: 61 QRSD: 77 T: 75 QT: 407 QTc: 464 Interpretive Statements SINUS RHYTHM WITH SINUS ARRHYTHMIA Compared to ECG 01/16/2021 17:51:35 Sinus tachycardia no longer present Short [place] interval no longer present Electronically Signed On 01-16-2021 20:43:28 CDT by Diana Hudson M.D. [id number]
[2021-01-16 20:52] LABS: Troponin 5 2HR 30.46 ng/L (0-10)
[2021-01-16 20:55] LABS: Troponin 5 2HR Delta -3.54 ABS# (0-10)
[2021-01-16 23:32] LABS: D Dimer 3.41 ug/mIFEU (0-0.59)
[2021-01-16 23:34] LABS: Troponin 5 6HR 32.58 ng/L (0-10)
[2021-01-16 23:36] LABS: Troponin 5 6HR Delta -1.42 ng/L (0-12)
--- NOTE | 2021-01-16 23:49 | PM.HP ---
Providers/Chief Complaint Admitting Physician: Maddison Saldana MD Primary Care Provider: BEHZAD Orta Chief Complaint: SOB History of Present Illness Radha Gonzalez is a 80 year old female with a past medical history of A. fib currently on Betapace and Xarelto, chronic smoker, temporal arteritis, malnourishment, recent left femoral fracture on December 30 which was deemed not operable, discharged home and then eventually went to alf for rehab. She is sent today from alf as her O2 sats were noted to be low in the 60s. Patient reports that over the past week she has been experiencing cough, sputum production and dyspnea. Denies any fever. CXR with trace pleural effusion. She has received 40 mg of IV Lasix in the ER due to concern for CHF. Reports being vaccinated for covid 19. Review of Systems General: Reports: 10 or more systems reviewed and unremarkable except in HPI and below Const: Denies: fever(s), chills or body aches Eyes: Denies: change in vision, blurry vision or photophobia ENMT: Reports: hoarseness; Denies: throat pain, enlarged tonsils, odynophagia or nasal congestion Card: Denies: chest pain, palpitations, irregular heart rhythm, edema, swelling of feet/ankles, lightheadedness, pre-syncope, dyspnea on exertion or orthopnea Resp: Denies: dyspnea, productive cough, non-productive cough, wheezing, stridor, pain on inspiration, change in phlegm color, hemoptysis or chest congestion GI: Denies: abdominal pain, nausea, vomiting, hematemesis, coffee ground emesis, dysphagia, heartburn, diarrhea, constipation, GI cramping, change in stool character, hematochezia or melena : Denies: flank pain, difficulty voiding, dysuria, urinary frequency, urinary urgency, urinary hesitancy or hematuria Musc: Denies: neck pain, back pain, extremity pain, joint swelling, joint warmth or deformity Neuro: Denies: headache(s), numbness in extremities, weakness in extremities, sensory changes, difficulty walking, frequent falls, dizziness, vertigo, behavioral changes, Slurred speech present or seizure-like activity Psych: Denies: anxiety, depression, suicidal ideation or homicidal ideation Endo: Denies: polyuria, polydipsia, tired all the time, cold intolerance or hot flashes Neil/Lymph: Denies: easy bruising or easy bleeding Medications/Allergies Home Medications Medication Instructions Recorded Confirmed Last Taken Type rivaroxaban 20 mg tablet 20 mg PO DAILY@0800 tab 05/04/19 01/16/21 01/16/21 History sotalol 80 mg tablet 80 mg PO BID 90 Days #180 tab 07/29/20 01/16/21 01/16/21 Rx losartan 25 mg PO QAM 12/30/20 01/16/21 01/16/21 History acetaminophen 650 mg PO Q6H PRN 01/16/21 01/16/21 Unknown History alum-mag hydroxide-simeth [Mylanta] 30 ml PO Q4H PRN 01/16/21 01/16/21 Unknown History atorvastatin 40 mg PO DAILY 01/16/21 01/16/21 01/15/21 History bisacodyl 10 mg VA DAILY PRN 01/16/21 01/16/21 Unknown History docusate sodium 200 mg PO BEDTIME 01/16/21 01/16/21 01/15/21 History loperamide [Imodium A-D] 4 mg PO QID PRN 01/16/21 01/16/21 Unknown History magnesium hydroxide [Milk of 30 ml PO DAILY PRN 01/16/21 01/16/21 Unknown History Magnesia] tramadol 50 mg PO Q6H PRN 01/16/21 01/16/21 Unknown History Allergies Allergy/AdvReac Type Severity Reaction Status Date / Time No Known Allergies Allergy Verified 12/30/20 15:59 PFSH Acute PFSH: Medical History Anticoagulation adequate Xarelto Arthritis Atrial fibrillation Cognitive dysfunction CVA (cerebral vascular accident) Diarrhea Essential hypertension Hyperlipidemia Temporal arteritis TIA (transient ischemic attack) Tobacco abuse Weight loss Surgical History S/P knee replacement S/P tonsillectomy S/P tubal ligation Family History Father CAD (coronary artery disease) Mother CAD (coronary artery disease) Other Cancer Hypertension Social History Smoking and tobacco status: current every day smoker cigarettes Alcohol intake: current Alcohol intake frequency: 0-2 Drinks per Day Alcohol type: beer Lives independently: Yes Marital status: / Current occupational status: retired Current gender identity: Female Katelyn/Sabianism: Shinto Vitals/I&O/Wt Last Vital Signs Temp 99.0 F 01/16/21 21:13 Pulse 78 01/16/21 22:13 Resp 18 01/16/21 21:13 BP 164/72 01/16/21 21:13 Pulse Ox 99 01/16/21 21:13 01/16/21 01/16/21 01/17/21 14:59 22:59 06:59 Intake Total 0 / 0 Balance 0 / 0 Weight last 48 hrs Weight 49.895 kg Physical Exam Narrative: EXAM NARRATIVE: General: No acute distress, AO x3, cachetic in appearance , mild dehydration HEENT: PERRLA, pupils bilaterally equal and reactive, pallors not present Chest: Normal vesicular breath sounds, no added sounds, equal good air entry bilaterally CVS: S1-S2 regular, no murmurs, no tachycardia, no gallops, no rubs Abdomen: Soft, nontender, no organomegaly, bowel sounds present Neuro: No focal deficits, no facial deformity, AO x3, power 5/5 in all limbs Extremities: no edema clubbing or cyanosis. . Data : 01/17/21 04:10 01/17/21 04:10 A&P Assessment and plan (1) Respiratory failure with hypoxia: Patient presenting with acute respiratory failure with hypoxia Differentials include CHF, underlying COPD given h/o chronic smoking, possible PE given recent femur fracture and difficluty with ambulation Check D dimer, if elevated will proceed with CTA chest, though PE appears less likely since patient is on Xarelto. Received 40mg iv lasix in ER, hold off on further doses for now as aappears to be euvolemic overall at this time check COVID PCR supplemental 02 to keep 02 sat >94% Duoneb inhalation q6h prn Ecocardiogram to estimate EF , assess diastolic function Currently rate controlled Status: Acute Qualifiers: Chronicity: acute Qualified Code(s): J96.01 - Acute respiratory failure with hypoxia (2) Pleural effusion: Status: Acute Additional A&P Information A fib with RVR: coninue sotalol and Xarelto HTN: continue losartan DVT ppx: xarelto Full code Attestations Medical Necessity Statement*: anticipate >2midnight admission for above defined care Coding Level of Care Code 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
[2021-01-17] VITALS (13 sets, daily range): BP systolic 93–134; BP diastolic 44–61; PULSE 65–82; RESP 16–20; TEMP 36.7–36.8; O2SAT 92–99
--- NOTE | 2021-01-17 00:33 | CTR_ITS ---
PROCEDURE INFORMATION: Exam: CTA Chest With Contrast Exam date and time: 01/17/2021 12:33 AM Age: 80 years old Clinical indication: Dyspnea and shortness of breath; Patient HX: Dyspnea with hypoxia. Elevated ddimer. Recent hip fracture. ; Additional info: Evaluate for pe, hypoxia, recent hip fracture, elevated d dimer TECHNIQUE: Imaging protocol: Computed tomographic angiography of the chest with contrast. 3D rendering (Not supervised by radiologist): MIP and/or 3D reconstructed images were created by the technologist. Radiation optimization: All CT scans at this facility use at least one of these dose optimization techniques: automated exposure control; mA and/or kV adjustment per patient size (includes targeted exams where dose is matched to clinical indication); or iterative reconstruction. Contrast material: VISI 320; Contrast volume: 53 ml; Contrast route: INTRAVENOUS (IV); COMPARISON: CR XR chest 1V portable [id number] 01/16/2021 2:19 PM RADIATION DOSE METRICS: Total DLP (mGy-cm): 316.6 FINDINGS: Pulmonary arteries: Normal. No pulmonary emboli. Aorta: Mild atherosclerotic disease of the aorta without aneurysm. Other arteries: 8 mm calcified splenic artery aneurysm. Lungs: Patchy opacities are present in the right middle and lower lobes and may be secondary to pneumonia. Pleural spaces: Small bilateral pleural effusions. Heart: Unremarkable. No cardiomegaly. No pericardial effusion. Mediastinal space: Small hiatal hernia. Lymph nodes: Unremarkable. No enlarged lymph nodes. Bones/joints: Age indeterminate compression fractures are present at T11 and L1. Soft tissues: Unremarkable. CT/CT angio chest PE protcl [id number] IMPRESSION: 1. No pulmonary embolism. 2. Patchy opacities are present in the right middle and lower lobes and may be secondary to pneumonia. 3. Mild atherosclerotic disease of the aorta without aneurysm. 4. Small hiatal hernia. 5. Small bilateral pleural effusions. 6. 8 mm calcified splenic artery aneurysm. 7. Age indeterminate compression fractures are present at T11 and L1. Radiation Dose CTDIVOL = (mGy): DLP = 316.6 (mGy-cm)
[2021-01-17] MEDS: iodixanol 320 mg/mL 100mL Btl IV (01:25)
[2021-01-17 04:54] LABS: Basophils % 0.2 %; Hemoglobin 9.7 g/dL (11.5-15.3); Lymphocytes # 0.6 10^3/uL (0.8-4.8); Lymphocytes % 4.3 %; Mean Corpuscular HGB Conc 31.3 g/dL (30.0-36.0); Mean Corpuscular Hemoglobin 34.2 pg (28.0-34.0); Mean Corpuscular Volume 109.2 fl (81-99); Mean Platelet Volume 11.2 fL (7.4-10.4); Monocytes # 1.6 10^3/uL (0.2-0.9); Monocytes % 11.9 %; Neutrophils # 10.91 10^3/uL (1.8-7.7); Neutrophils % 83.2 %; Nucleated Red Blood Cells % 0 %; Platelet Count 383 10^3/cmm (130-400); Red Blood Count 2.84 10^6/uL (4.1-5.3); Red Cell Distribution Width 14.5 % (12.1-15.1); White Blood Count 13.1 10^3/uL (4.0-10.0)
[2021-01-17 05:16] LABS: Alanine Aminotransferase 9 U/L (0-33); Alkaline Phosphatase 208 IU/L (35-105); Blood Urea Nitrogen 33 mg/dL (8-23); Calcium 8.1 mg/dL (8.5-10.5); Carbon Dioxide 27 mmol/L (22-29); Chloride 103 mmol/L (98-107); Globulin 3.4 g/dL (1.3-4.6); Glucose 111 mg/dL (65-115); Osmolality Calculated 298 mOsm/kg (285-295); Sodium 140 mmol/L (136-145); Total Bilirubin 0.6 mg/dL (0.15-1.2); Total Protein 6.4 g/dL (6.6-8.7)
[2021-01-17 05:18] LABS: Aspartate Amino Transferase 25 U/L (0-32)
[2021-01-17] MEDS: losartan 50 mg Tablet 25 MG PO (05:30)
[2021-01-17] MEDS: cefTRIAXone 1,000 MG in sodium chloride 0.9% (plus) 50 ML 100 MG IV (05:32)
[2021-01-17 06:00] LABS: Procalcitonin 0.53 ng/mL (0-0.5)
[2021-01-17] MEDS: azithromycin 250 mg Tablet 500 MG PO (08:04)
[2021-01-17] MEDS: atorvastatin 40 mg Tablet PO (08:04)
[2021-01-17] MEDS: rivaroxaban 10 mg Tablet 20 MG PO (08:04)
[2021-01-17] MEDS: pantoprazole DR 40 mg Tablet PO (08:04)
[2021-01-17] MEDS: sotalol 80 mg Tablet PO ×2 (08:04→17:33)
[2021-01-17] MEDS: magnesium hydroxide 30 mL UDC PO (08:46)
[2021-01-17] MEDS: TRAMadol 50 mg Tablet PO (08:46)
[2021-01-17 12:43] LABS: Iron 23 ug/dL (37-145); Thyroid Stimulating Hormone 1.14 uIU/mL (0.27-4.20)
[2021-01-17 12:46] LABS: Percent Saturation 9.5 % (20-50); Total Iron Binding Capacity 242 mcg/dl; Unsaturated Iron Binding 219 ug/dL (112-347)
--- NOTE | 2021-01-17 13:25 | PC.CHAP ---
Pastoral Care Encounter/Spiritual Assessment Type of Contact [] Declined pan puller visit [] Patient/Family/Request visit [] Outpatient visit [] Follow-up visit [] Physician referral [] Code/Alert [] Routine visit [] Staff referral [] Actively dying [] Patient sleeping [] Family support [] [] Out of room [] Palliative care [] [] Receiving care in room [] Pre-surgical visit [] Trauma [] Long length of stay [] ICU visit [xx] Other: Patient has been placed in ISOLATION Relational/Emotional Strength [] Patient feels connected with others/family/visitors/staff [] Distress [] Loneliness/isolation [] Abandonment Spirituality of Patient [] Person of Katelyn [] Attends Amish of their Katelyn [] Believes in Prayer [] Reads Bible or Pentecostalism materials [] There are Spiritual issues to be addressed Hand Model Interventions [] Prayer [] Active listening [] Non-anxious presence [] Spiritual/emotional support [] Crisis/trauma care [] Spiritual counseling [] Bereavement support [] Provided bereavement packet [] Provided Bible/devotional materials [] Provided toy/stuffed animal, coloring book to patient or family member [] Provided Communion [] Anointing/[place]nath [] Salvation [] Completed spiritual assessment [] Other: Impact on Illness or Injury [] Angry [] Fearful [] Anxious [] Often cries [] Exhaustion [] Unable to work [] Unable to attend orthodox [] Unable to walk/stand [] Unable to read [] Unable to drive [] Unable to eat/drink [] Unable to sleep [] Unable to be with family [] Patient intubated [] Other: Summary Time spent with patient
--- NOTE | 2021-01-17 13:45 | P.PN_ITS ---
Subjective Subjective: Interval history: Admitted overnight. On examination patient on 2 L nasal cannula saturating 98%. Complaining of severe constipation. Last she had bowel movement was 2 weeks ago. She states whenever she has a bowel movement she has pain in her rectum and it feels her rectum is burning. Denies any nausea, vomiting, headache, dizziness. Vitals/I&O/Wt Last Vital Signs Temp 98.2 F 01/17/21 08:00 Pulse 66 01/17/21 08:14 Resp 18 01/17/21 08:14 BP 118/57 01/17/21 08:00 Pulse Ox 98 01/17/21 08:14 01/16/21 01/17/21 01/17/21 22:59 06:59 14:59 Intake Total 0 / 0 50 / 50 240 / 240 Balance 0 / 0 50 / 50 240 / 240 Weight last 48 hrs Weight 43.318 kg Weight 49.895 kg Physical Exam Narrative: EXAM NARRATIVE: General: No acute distress, AO x3, thin, frail, chronically sick appearing on 2 L nasal cannula HEENT: PERRLA, pupils bilaterally equal and reactive Chest: Normal vesicular breath sounds, bronchial breath sounds right middle and lower zone, equal good air entry bilaterally CVS: S1-S2 regular, no murmurs, no tachycardia, no gallops, no rubs Abdomen: Soft, nontender, no organomegaly, bowel sounds sluggish Neuro: No focal deficits, no facial deformity, AO x3, power 5/5 in all limbs Data : 01/17/21 04:10 01/17/21 04:10 Micro: Microbiology 01/17/21 12:51 Blood Culture - Preliminary Blood SPECIMEN COLLECTED 01/17/21 12:47 Blood Culture - Preliminary Blood SPECIMEN COLLECTED A&P Assessment and plan (1) Respiratory failure with hypoxia: Status: Acute Qualifiers: Chronicity: acute Qualified Code(s): J96.01 - Acute respiratory failure with hypoxia (2) Pleural effusion: Status: Acute (3) Atrial fibrillation: Status: Acute (4) Essential hypertension: Status: Acute (5) Constipation: Status: Acute Additional A&P Information Hypoxia: Most likely secondary to COPD exacerbation secondary to community- acquired pneumonia: CTA done on admission negative for pulmonary embolism. Negative for fluid overload. Patient did get IV Lasix in the ER. proBNP mildly elevated on admission. Do not have baseline. COVID-19 PCR pending. Isolation precautions. DuoNebs every 6 hour, budesonide twice daily. Continue with ceftriaxone and azithromycin. Check sputum culture, urine Legionella, bacterial antigen, blood culture, urinalysis. Will de-escalate antibiotics as per culture results. Check echocardiogram to assess EF and diastolic functions. Oxygen supplementation keeping saturation more than 88%. Pleural effusion: Not significant currently. For now we will hold off on thoracentesis. A fib with RVR: Currently rate controlled. Coninue sotalol and Xarelto HTN: Goal blood pressure less than 140/90 mmHg. Continue with home dose of sotalol. Hold off on losartan for now. CKD: Baseline creatinine around 1.1. Creatinine at baseline. Continue to monitor. Constipation: Complaining of extensive constipation for last [address] abdomen pelvis. Aggressive bowel regimen will. DVT ppx: xarelto Full code Cardiac diet high-fiber. Protonix for PUD prophylaxis Attestations Medical Necessity Statement*: Requires further hospitalization for management of hypoxia secondary to COPD exacerbation, possible community-acquired pneumonia, severe constipation, pending COVID-19 PCR Time Spent in Patient Care: Greater than 35 minutes (>than 50% of time spent in counselling and/or direct pt care on unit) . 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
[2021-01-17 13:48] LABS: Add Urine Microscopic? NO; Charge for UA Resulting for Rev
--- NOTE | 2021-01-17 13:52 | CT_ITS ---
WS: [id number] CT ABDOMEN PELVIS TECHNIQUE: Noncontrast CT of the abdomen and pelvis with coronal and sagittal reformatted images. CLINICAL INFORMATION: Constipation, possible bowel obstruction COMPARISON: CTA earlier today. DLP: 715.[address] scans at [facility] use at least one of these dose optimization techniques: automated e xposure control; mA and/or kV adjustment per patient size (includes targeted exams where dose is matc hed to clinical indication); or iterative reconstruction. FINDINGS: Small bilateral pleural effusions with compressive atelectasis right greater than left lower lobe. Ch ronic compression of the L1 vertebral body with anterior wedging. Recent compression of the T11 verte bral body partially evaluated. This appears slightly progressed compared to the CT December 30, 2020 . No significant retropulsion. Noncontrast liver is normal. Small esophageal hiatal hernia. Noncontrast spleen is normal. Aortic sol cification. Normal caliber abdominal aorta. Adrenal glands are normal. Bilateral renal cortical atrop hy. Small bilateral renal cysts.. No hydronephrosis. Marked distention of the rectosigmoid with constipation. Sigmoid constipation. A few air-fluid levels in the transverse colon. No evidence of small bowel obstruction. Bilateral THAs degrade images in th e pelvis. IMPRESSION: 1. Marked distention of the rectum with fecal impaction. Sigmoid constipation. 2. A few air-fluid levels in the transverse colon due to distal constipation. No evidence of small b owel obstruction. 3. Small esophageal hiatal hernia with fluid in the stomach and duodenum. 4. Small bilateral pleural effusions right greater than left with compressive atelectasis in the tiffany g bases. 5. Recent compression of the T11 vertebral body with anterior wedging appears slightly progressed si nce December 30, 2020. No retropulsion. 6. Normal caliber abdominal aorta. 7. Bilateral THAs.
[2021-01-17] MEDS: polyethylene glycol 3350 Pkt 17 gm PO (13:53)
[2021-01-17 14:07] LABS: Bilirubin Urine Neg (Negative); Blood Urine Neg (Negative); Glucose Urine UA Norm (Normal); Ketones Urine Negative (Negative); Leukocyte Esterase Urine Negative (Negative); Nitrate Urine Negative (Negative); Protein Urine Neg (Negative); Urine Appearance Clear (CLEAR); Urine Color Yellow (Yellow); Urobilinogen Urine Norm (Negative); pH Urine 5 (5-7)
[2021-01-17 14:20] LABS: Influenza A by IFA Negative (Negative); Influenza B by IFA Negative (Negative)
[2021-01-17] MEDS: ipratropium-albuterol 3 mL Neb INHALATION ×2 (14:28→20:50)
--- NOTE | 2021-01-17 14:30 | PC.NURSE ---
Spoke with physician regarding low blood pressure and pt not drinking a lot of fluids. Received orders to start IVF fluids, NS at 50cc an hour.
[2021-01-17] MEDS: sodium chloride 0.9% 1,000 ML 50 ML IV (14:47)
[2021-01-17 14:49] LABS: Coronavirus Test Green County Not Detected
--- NOTE | 2021-01-17 15:18 | PC.RESP ---
SMOKING CESSATION INFORMATION SENT TO PATIENT.
[2021-01-17] MEDS: mineral oil ENEMA 133 mL PR (16:32)
[2021-01-17] MEDS: budesonide 0.5 mg/2 mL Neb INHALATION (20:50)
[2021-01-17] MEDS: sennosides 8.6 mg Tablet 17.2 MG PO (21:12)
[2021-01-18] VITALS (21 sets, daily range): BP systolic 99–139; BP diastolic 44–64; PULSE 67–91; RESP 14–22; TEMP 36.6–37.1; O2SAT 88–100
[2021-01-18] MEDS: ipratropium-albuterol 3 mL Neb INHALATION ×4 (02:52→21:31)
[2021-01-18 04:08] LABS: Basophils % 0.4 %; Eosinophils # 0.2 10^3/uL (0.0-0.8); Eosinophils % 1.4 %; Hematocrit 23.9 % (37.0-47.0); Hemoglobin 7.5 g/dL (11.5-15.3); Lymphocytes # 1.5 10^3/uL (0.8-4.8); Lymphocytes % 13.1 %; Mean Corpuscular HGB Conc 31.4 g/dL (30.0-36.0); Mean Corpuscular Hemoglobin 34.2 pg (28.0-34.0); Mean Corpuscular Volume 109.1 fl (81-99); Mean Platelet Volume 11.1 fL (7.4-10.4); Monocytes # 1.5 10^3/uL (0.2-0.9); Monocytes % 13.5 %; Neutrophils # 8.01 10^3/uL (1.8-7.7); Neutrophils % 71.1 %; Nucleated Red Blood Cells % 0 %; Platelet Count 282 10^3/cmm (130-400); Red Blood Count 2.19 10^6/uL (4.1-5.3); Red Cell Distribution Width 15.3 % (12.1-15.1); White Blood Count 11.3 10^3/uL (4.0-10.0)
[2021-01-18 04:31] LABS: Alanine Aminotransferase 8 U/L (0-33); Albumin Level 2.6 g/dL (3.5-5.2); Alkaline Phosphatase 159 IU/L (35-105); Anion Gap 10.9 (5-19); Aspartate Amino Transferase 14 U/L (0-32); Blood Urea Nitrogen 36 mg/dL (8-23); Calcium 7.5 mg/dL (8.5-10.5); Carbon Dioxide 26 mmol/L (22-29); Chloride 106 mmol/L (98-107); Globulin 2.9 g/dL (1.3-4.6); Glucose 89 mg/dL (65-115); Osmolality Calculated 296 mOsm/kg (285-295); Potassium 3.9 mmol/L (3.5-5.1); Sodium 139 mmol/L (136-145); Total Bilirubin 0.4 mg/dL (0.15-1.2); Total Protein 5.5 g/dL (6.6-8.7)
[2021-01-18] MEDS: cefTRIAXone 1,000 MG in sodium chloride 0.9% (plus) 50 ML 100 MG IV (04:37)
[2021-01-18 04:45] LABS: Estmated Average Glucose 82; Hemoglobin A1C 4.5 % (4.0-6.0)
--- NOTE | 2021-01-18 06:53 | USCV_ITS ---
Radha Gonzalez Age: 80 Gender: F : 1940 Exam Date: 01/18/2021 07:00 Ordering Phys: Maddison Saldana MD Technologist: Lorena Spring [place] [facility] [place]: CHF BP: 103 / 50 HR: 94 Rhythm: Sinus Technical Quality: Fair MEASUREMENTS (Male / Female) Normal Values 2D ECHO LV Diastolic Diameter PLAX 3.9 cm 4.2 - 5.9 / 3.9 - 5.3 cm LV Systolic Diameter PLAX 2.7 cm LV Chamber Size 3.3 cm IVS Diastolic Thickness 1.3 cm 0.6 - 1.0 / 0.6 - 0.9 cm IVS Systolic Thickness 1.5 cm LVPW Diastolic Thickness 1.4 cm 0.6 - 1.0 / 0.6 - 0.9 cm LVPW Systolic Thickness 1.2 cm RV Chamber Size 2.2 cm LVOT Diameter 1.7 cm LV Ejection Fraction 2D Teich 58.8 % LV Ejection Fraction MOD 2C 58.3 % LV Ejection Fraction 2C AL 58.9 % LA Diameter 4.4 cm LA Width 3.0 cm LA Height 3.8 cm RA Width 2.6 cm RA Height 3.3 cm Aorta at Sinotubular Diameter 2.4 cm M-MODE LV Diastolic Diameter MM 5.1 cm 4.2 - 5.9 / 3.9 - 5.3 cm LV Systolic Diameter MM 3.3 cm LV Ejection Fraction MM Teich 63.6 % IVS Diastolic Thickness MM 1.0 cm 0.6 - 1.0 / 0.6 - 0.9 cm IVS Systolic Thickness MM 1.5 cm LVPW Diastolic Thickness MM 1.0 cm 0.6 - 1.0 / 0.6 - 0.9 cm LVPW Systolic Thickness MM 1.2 cm RV Diastolic Diameter MM 1.0 cm Aortic Annulus Diameter 3.1 cm LA Ao Ratio MM 1.5 MV E Point Septal Separation 0.6 cm DOPPLER AV Peak Velocity 119.0 cm/s LVOT Peak Velocity 108.0 cm/s AV Area Cont Eq vti 1.8 cm squared AV Area Cont Eq pk 2.1 cm squared MV Area PHT 3.9 cm squared MV E' Velocity 52.5 cm/s Mitral E to MV E' Ratio 9.9 Mitral E to LV E' Lateral Ratio 7.7 Mitral E to LV E' Septal Ratio 14.1 TR Peak Velocity 257.0 cm/s TR Peak Gradient 26.4 mmHg TV Peak E Velocity 38.0 cm/s Right Atrial Pressure 8.0 mmHg Pulmonary Artery Systolic Pressu 34.4 mmHg PV Peak Velocity 100.0 cm/s RV Acceleration Time 0.1 s RV Ejection Time 0.3 s RV AcT/ET 0.5 FINDINGS Left Ventricle Normal left ventricular size. LV systolic function is normal with EF of 55 to 60%. No regional wall motion abnormalities. Diastolic function is indeterminate. Right Ventricle The right ventricle is normal in size and function. Right Atrium The right atrium is normal in size. Right atrial pressure is elevated Left Atrium The left atrium is dilated Mitral Valve Structurally normal mitral valve without significant stenosis or prolapse. There is mild mitral regurgitation. Aortic Valve Structurally normal aortic valve without significant sclerosis or stenosis. There is no aortic regurgitation. Tricuspid Valve Structurally normal tricuspid valve without significant stenosis or regurgitation. Insufficient TR jet to calculate RVSP. Pulmonic Valve Structurally normal pulmonic valve without significant stenosis. There is no pulmonic regurgitation. Pericardium Normal pericardium without effusion. Aorta Normal ascending aorta dimension. CONCLUSIONS LV systolic function is normal with EF of 55 to 60%. Diastolic function is indeterminate. Left atrium is dilated Right atrial pressure is dilated Mild mitral regurgitation. Compared to prior echocardiogram from 12/07/2013, no significant changes are noted Senthil Chan MD (Electronically Signed) Final Date: 18 January 2021 14:50 S
[2021-01-18] MEDS: budesonide 0.5 mg/2 mL Neb INHALATION (08:06)
[2021-01-18] MEDS: atorvastatin 40 mg Tablet PO (08:22)
[2021-01-18] MEDS: ferrous gluconate 324 mg Tablet PO ×2 (08:22→17:31)
[2021-01-18] MEDS: sotalol 80 mg Tablet PO ×2 (08:22→17:31)
[2021-01-18] MEDS: azithromycin 250 mg Tablet 500 MG PO (08:22)
[2021-01-18] MEDS: magnesium hydroxide 30 mL UDC PO (08:22)
[2021-01-18] MEDS: pantoprazole 40 mg SDV IVP ×2 (09:11→21:10)
[2021-01-18 09:45] LABS: Vitamin B12 532 pg/mL (232-1245)
[2021-01-18] MEDS: sodium chloride 0.9% 1,000 ML 75 ML IV ×2 (09:46→23:39)
[2021-01-18 09:48] LABS: Folate Level 4.8 ng/mL (4.8-37.3)
--- NOTE | 2021-01-18 13:58 | P.PN_ITS ---
Subjective Subjective: Interval history: No acute events overnight. Patient did have a huge bowel movement yesterday post enema and disimpaction. Today morning on examination states he is feeling a lot better. Denies any nausea, vomiting, headache. Currently on room air saturating 96%. Has remained hemodynamically stable. Vitals/I&O/Wt Last Vital Signs Temp 98.6 F 01/18/21 11:56 Pulse 80 01/18/21 12:56 Resp 19 H 01/18/21 12:56 BP 136/64 01/18/21 12:56 Pulse Ox 96 01/18/21 12:56 01/17/21 01/18/21 01/18/21 22:59 06:59 14:59 Intake Total 50 / 290 1185.167 / 1185.167 Balance 50 / 290 1185.167 / 1185.167 Weight last 48 hrs Weight 41.73 kg Weight 43.318 kg Physical Exam Narrative: EXAM NARRATIVE: General: No acute distress, AO x3, thin, frail, chronically sick appearing, malnourished HEENT: PERRLA, pupils bilaterally equal and reactive Chest: Normal vesicular breath sounds, bronchial breath sounds right middle and lower zone, equal good air entry bilaterally CVS: S1-S2 regular, no murmurs, no tachycardia, no gallops, no rubs Abdomen: Soft, nontender, no organomegaly, bowel sounds sluggish Neuro: No focal deficits, no facial deformity, AO x3, power 5/5 in all limbs Data : 01/18/21 03:47 01/18/21 03:47 Micro: Microbiology 01/17/21 12:51 Blood Culture - Preliminary Blood NEGATIVE TO DATE 01/17/21 12:47 Blood Culture - Preliminary Blood NEGATIVE TO DATE 01/17/21 13:00 MRSA Culture - Final Nose 01/17/21 13:00 Legionella Urinary Antigen - Final Urine,Clean Catch A&P Assessment and plan (1) Respiratory failure with hypoxia: Patient presenting with acute respiratory failure with hypoxia Differentials include CHF, underlying COPD given h/o chronic smoking, possible PE given recent femur fracture and difficluty with ambulation Check D dimer, if elevated will proceed with CTA chest, though PE appears less likely since patient is on Xarelto. Received 40mg iv lasix in ER, hold off on further doses for now as aappears to be euvolemic overall at this time check COVID PCR supplemental 02 to keep 02 sat >94% Duoneb inhalation q6h prn Ecocardiogram to estimae EF , assess diastolic function Currently rate controlled Status: Acute Qualifiers: Chronicity: acute Qualified Code(s): J96.01 - Acute respiratory failure with hypoxia (2) Atrial fibrillation: Status: Acute (3) Acute on chronic anemia: Status: Acute (4) Essential hypertension: Status: Acute (5) Malnutrition: Status: Acute (6) Pleural effusion: Status: Acute (7) Constipation: Status: Acute Additional A&P Information Hypoxia: Most likely secondary to COPD exacerbation secondary to community- acquired pneumonia: CTA done on admission negative for pulmonary embolism. Negative for fluid overload. Patient did get IV Lasix in the ER. proBNP mildly elevated on admission. Do not have baseline. COVID-19 PCR negative. Remove isolation precautions. DuoNebs every 6 hour, budesonide twice daily. Hold off on steroids for now. Continue with ceftriaxone and azithromycin. Urine Legionella, MRSA swab negative. Sputum culture awaited. Will de-escalate antibiotics as per culture results. Check echocardiogram to assess EF and diastolic functions. Oxygen supplementation keeping saturation more than 88%. Pleural effusion: Not significant currently. For now we will hold off on th oracentesis. Anemia: Acute on chronic. Hemoglobin 7.5 today. Most likely a combination of dilutional along with iron deficiency anemia and anemia of chronic disease because of severe malnutrition. Continue with oral iron supplementation. Transfuse 1 unit of PRBC. Target hemoglobin over 8. Protonix 40 mg IV twice daily. Check vitamin B12, folate levels, reticulocyte count. Continue with oral iron supplementation. Most likely patient would need outpatient follow-up with surgery for EGD and co lonoscopy. A fib with RVR: Currently rate controlled. Coninue sotalol. Hold Xarelto for now given anemia. HTN: Goal blood pressure less than 140/90 mmHg. Continue with home dose of sotalol. Hold off on losartan for now. CKD: Baseline creatinine around 1.1. Creatinine at baseline. Continue to monitor. Constipation: Resolved. Continue with aggressive bowel regimen. DVT ppx: SCDs. Hold off on Xarelto for now given anemia. Full code Cardiac diet high-fiber. Protonix for PUD prophylaxis Physical therapy. Out of bed to chair. Patient's care discussed in detail with her daughter over the phone. All the questions were answered. Attestations Medical Necessity Statement*: Requires further hospitalization for management of hypoxia secondary to COPD exacerbation, possible cardiac wire pneumonia, a cute on chronic anemia. Time Spent in Patient Care: Greater than 35 minutes (>than 50% of time spent in counselling and/or direct pt care on unit) . 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
[2021-01-18 16:25] LABS: Hematocrit 27.3 % (37.0-47.0); Hemoglobin 8.7 g/dL (11.5-15.3)
[2021-01-18 16:33] LABS: Reticulocyte % 1.5 % (0.5-2.0)
[2021-01-18] MEDS: sennosides 8.6 mg Tablet 17.2 MG PO (21:10)
[2021-01-19] VITALS (8 sets, daily range): BP systolic 126–157; BP diastolic 57–74; PULSE 70–91; RESP 17–20; TEMP 36.6–36.8; O2SAT 92–99
[2021-01-19 04:35] LABS: Basophils % 0.2 %; Eosinophils # 0.2 10^3/uL (0.0-0.8); Eosinophils % 2.5 %; Hematocrit 27.5 % (37.0-47.0); Hemoglobin 8.9 g/dL (11.5-15.3); Lymphocytes # 1.2 10^3/uL (0.8-4.8); Lymphocytes % 12.9 %; Mean Corpuscular HGB Conc 32.4 g/dL (30.0-36.0); Mean Corpuscular Hemoglobin 33.6 pg (28.0-34.0); Mean Corpuscular Volume 103.8 fl (81-99); Mean Platelet Volume 11.6 fL (7.4-10.4); Monocytes # 1.4 10^3/uL (0.2-0.9); Monocytes % 14.4 %; Neutrophils # 6.51 10^3/uL (1.8-7.7); Neutrophils % 69.6 %; Nucleated Red Blood Cells % 0 %; Platelet Count 249 10^3/cmm (130-400); Red Blood Count 2.65 10^6/uL (4.1-5.3); Red Cell Distribution Width 17.7 % (12.1-15.1); White Blood Count 9.4 10^3/uL (4.0-10.0)
[2021-01-19 05:03] LABS: Alanine Aminotransferase 7 U/L (0-33); Albumin Level 2.5 g/dL (3.5-5.2); Alkaline Phosphatase 152 IU/L (35-105); Anion Gap 10.9 (5-19); Aspartate Amino Transferase 13 U/L (0-32); Blood Urea Nitrogen 26 mg/dL (8-23); Calcium 7.3 mg/dL (8.5-10.5); Carbon Dioxide 25 mmol/L (22-29); Chloride 113 mmol/L (98-107); Globulin 2.6 g/dL (1.3-4.6); Glucose 88 mg/dL (65-115); Osmolality Calculated 304 mOsm/kg (285-295); Potassium 3.9 mmol/L (3.5-5.1); Sodium 145 mmol/L (136-145); Total Bilirubin 0.6 mg/dL (0.15-1.2); Total Protein 5.1 g/dL (6.6-8.7)
[2021-01-19] MEDS: cefTRIAXone 1,000 MG in sodium chloride 0.9% (plus) 50 ML 100 MG IV (05:10)
[2021-01-19] MEDS: TRAMadol 50 mg Tablet PO (08:52)
[2021-01-19] MEDS: pantoprazole 40 mg SDV IVP (08:52)
[2021-01-19] MEDS: magnesium hydroxide 30 mL UDC PO (08:52)
[2021-01-19] MEDS: azithromycin 250 mg Tablet 500 MG PO (08:53)
[2021-01-19] MEDS: atorvastatin 40 mg Tablet PO (08:53)
[2021-01-19] MEDS: sotalol 80 mg Tablet PO (08:53)
[2021-01-19] MEDS: ferrous gluconate 324 mg Tablet PO (08:53)
--- NOTE | 2021-01-19 09:48 | PM.DCS ---
Discharge Providers Date of Admission: 01/16/21 23:02 Date of Discharge: January 19, 2021 Attending Provider at Admission: Maddison Saldana MD Attending Provider at Discharge: Sarath Sahu MD Primary Care Provider: BEHZAD Orat Diagnoses at Discharge Discharge Diagnosis (1) Respiratory failure with hypoxia: Status: Acute Qualifiers: Chronicity: acute Qualified Code(s): J96.01 - Acute respiratory failure with hypoxia (2) Atrial fibrillation: Status: Acute (3) Acute on chronic anemia: Status: Acute (4) Essential hypertension: Status: Acute (5) Malnutrition: Status: Acute (6) Pleural effusion: Status: Acute (7) Constipation: Status: Acute Reason for Visit Reason for Visit: SOB Hospital Course Hospital Course Radha Gonzalez is a 80 year old female with a past medical history of A. fib currently on Betapace and Xarelto, chronic smoker, temporal arteritis, malnourishment, recent left femoral fracture on December 30 which was deemed not operable, discharged home and then eventually went to assisted living for rehab. She is sent and on January 16 as it was reported that her O2 sats were noted to be low in the 60s. Patient reports that over the past week she has been experiencing cough, sputum production and dyspnea. Denies any fever. CXR with trace pleural effusion. She has received 40 mg of IV Lasix in the ER due to concern for CHF. Reports being vaccinated for covid 19. Patient went to the hospital for further work-up of possible hypoxia. On admission her D-dimer was elevated for which CTA was performed which showed no pulmonary embolism but possible patchy opacities in right middle and lower lobes with small bilateral pleural effusions. On admission her white count was mildly elevated with elevated procalcitonin and she was started on treatment for community-acquired pneumonia. During admission patient complained of severe constipation with no bowel movement for over 2 weeks and burning and pain in the rectum while defecating. CT abdomen was done which is consistent with severe constipation and impaction. Patient was disimpacted and was given aggressive bowel regimen along with enema after which she had good bowel movements. Patient reported feeling a lot better after bowel movements. She has been on room air for last 2 days. During hospitalization with IV hydration her hemoglobin trended down to as low as 7.5. She was given 1 unit of blood transfusion after which her hemoglobin improved to 8.5 and remained stable for over 24 hours. Patient did not have any active bleeding during hospitalization. She is been discharged back to assisted living in hemodynamically stable condition on oral Augmentin and Levaquin for 2 more days to finish a 5-day course along with aggressive bowel regimen and advised to follow-up with surgery in 2 weeks for possible EGD and colonoscopy to rule out GI bleed. She is advised to have a repeat CBC drawn in 1 week. Physical Exam Narrative: EXAM NARRATIVE: General: No acute distress, AO x3, thin, frail, chronically sick appearing, malnourished HEENT: PERRLA, pupils bilaterally equal and reactive Chest: Normal vesicular breath sounds, bronchial breath sounds right middle and lower zone, equal good air entry bilaterally CVS: S1-S2 regular, no murmurs, no tachycardia, no gallops, no rubs Abdomen: Soft, nontender, no organomegaly, bowel sounds sluggish Neuro: No focal deficits, no facial deformity, AO x3, power 5/5 in all limbs Discharge Data Data Completed and Pending: Completed Studies During Hospitalization Category Date Time Status CT abdomen pelvis wo con [id number] Rout ine Cat Scan 01/17/21 13:[address] angio chest PE protcl [id number] Rout ine Cat Scan 01/17/21 00:33 Completed XR chest 1V lon ble [id number] Stat Exams 01/16/21 14:12 Completed CV. echo complete * [id number] Routine Ultrasound 01/18/21 06:53 Completed Pending at discharge Category Date Time Status Bacterial Antigen Stat Lab 01/17/21 11:29 Ordered Blood Culture Sta t Lab 01/17/21 12:51 Results Immunochemical Fe sol OCB Routine Lab 01/18/21 07:37 Ordered Labs from last 24 hours 01/19/21 01/19/21 01/18/21 03:56 03:56 16:15 WBC 9.4 RBC 2.65 L Hgb 8.9 L 8.7 L Hct 27.5 L 27.3 L MCV 103.8 H MCH 33.6 MCHC 32.4 RDW 17.7 H Plt Count 249 MPV 11.6 H Neut % (Auto) 69.6 Lymph % (Auto) 12.9 Mclean % (Auto) 14.4 Eos % (Auto) 2.5 Baso % (Auto) 0.2 Reticulocyte % (Au to) Neut # (Auto) 6.51 Lymph # (Auto) 1.2 Mclean # (Auto) 1.4 H Eos # (Auto) 0.2 Baso # (Auto) 0.0 Nucleated RBC % (a uto) 0 Nucleated RBCs # 0.0 Sodium 145 Potassium 3.9 Chloride 113 H Carbon Dioxide 25 Anion Gap 10.9 BUN 26 H Creatinine 1.0 H GFR Calculation Not Reportable Glucose 88 Calculated Osmolal ity 304 H Calcium 7.3 L Total Bilirubin 0.6 AST 13 ALT 7 Alkaline Phosphata se 152 H Total Protein 5.1 L Albumin 2.5 L Globulin 2.6 Folate Blood Type Rho(D) Type Antibody Screen Crossmatch 01/18/21 01/18/21 01/18/21 08:13 08:13 03:47 WBC RBC Hgb Hct MCV MCH MCHC RDW Plt Count MPV Neut % (Auto) Lymph % (Auto) Mclean % (Auto) Eos % (Auto) Baso % (Auto) Reticulocyte % (Au to) 1.5 Neut # (Auto) Lymph # (Auto) Mclean # (Auto) Eos # (Auto) Baso # (Auto) Nucleated RBC % (a uto) Nucleated RBCs # Sodium Potassium Chloride Carbon Dioxide Anion Gap BUN Creatinine GFR Calculation Glucose Calculated Osmolal ity Calcium Total Bilirubin AST ALT Alkaline Phosphata se Total Protein Albumin Globulin Folate 4.8 Blood Type A Positive Rho(D) Type Positive Antibody Screen Negative Crossmatch See Detail Addt'l Data from Hospital Stay: Laboratory Results WBC 9.4 10^3/uL (4.0- 10.0) 01/19/21 03:56 RBC 2.65 10^6/uL (4.1 -5.3) L 01/19/21 03:56 Hgb 8.9 g/dL (11.5-15 .3) L 01/19/21 03:56 Hct 27.5 % (37.0-47.0 ) L 01/19/21 03:56 MCV 103.8 fl (81-99) H 01/19/21 03:56 MCH 33.6 pg (28.0-34. 0) 01/19/21 03:56 MCHC 32.4 g/dL (30.0-3 6.0) 01/19/21 03:56 RDW 17.7 % (12.1-15.1 ) H 01/19/21 03:56 Plt Count 249 10^3/cmm (130 -400) 01/19/21 03:56 MPV 11.6 fL (7.4-10.4 ) H 01/19/21 03:56 Neut % (Auto) 69.6 % 01/19/21 03:56 Lymph % (Auto) 12.9 % 01/19/21 03:56 Mclean % (Auto) 14.4 % 01/19/21 03:56 Eos % (Auto) 2.5 % 01/19/21 03:56 Baso % (Auto) 0.2 % 01/19/21 03:56 Reticulocyte % (Au to) 1.5 % (0.5-2.0) 01/18/21 03:47 Neut # (Auto) 6.51 10^3/uL (1.8 -7.7) 01/19/21 03:56 Lymph # (Auto) 1.2 10^3/uL (0.8- 4.8) 01/19/21 03:56 Mclean # (Auto) 1.4 10^3/uL (0.2- 0.9) H 01/19/21 03:56 Eos # (Auto) 0.2 10^3/uL (0.0- 0.8) 01/19/21 03:56 Baso # (Auto) 0.0 10^3/uL (0.0- 0.1) 01/19/21 03:56 Nucleated RBC % (a uto) 0 % 01/19/21 03:56 Nucleated RBCs # 0.0 /100WBC 01/19/21 03:56 D-Dimer 3.41 ug/mIFEU (0- 0.59) H 01/16/21 23:10 Specimen Type Arterial 01/16/21 15:05 Sample Site Radial, left 01/16/21 15:05 ABG pH 7.37 (7.35-7.45) 01/16/21 15:05 ABG pCO2 45.4 mmHg (35-45) H 01/16/21 15:05 ABG pO2 61.2 mmHg (80.0-1 00.0) L 01/16/21 15:05 ABG HCO3 26.1 mmol/L (22-2 6) H 01/16/21 15:05 ABG O2 Saturation 91.1 01/16/21 15:05 ABG Base Excess 0.4 mmol/L (-2.0- 2.0) 01/16/21 15:05 Angel Test Pos 01/16/21 15:05 A-a O2 Gradient 18.2 mmHg (5-10) H 01/16/21 15:05 Hematocrit 31.4 % (37-47) L 01/16/21 15:05 Hgb O2 Saturation 88.9 % (95-100) L 01/16/21 15:05 Carboxyhemoglobin 1.5 %THgb (0.4-20 .1) 01/16/21 15:05 Methemoglobin 0.9 % (0.4-1.5) 01/16/21 15:05 Total Hemoglobin 10.2 g/dL (12-16) L 01/16/21 15:05 Sodium 142.0 mmol/L (131 -143) 01/16/21 15:05 Potassium 5.0 mmol/L (3.5-5 .0) 01/16/21 15:05 Glucose 99.0 mg/dL (70-11 5) 01/16/21 15:05 Ionized Calcium 1.2 mmol/L (1.1-1 .4) 01/16/21 15:05 O2 Delivery Device Nc 01/16/21 15:05 O2 Liters/Min 4.0 % 01/16/21 15:05 FiO2 36.0 % 01/16/21 15:05 [id number] Consultant ID Monro 01/16/21 15:05 Sodium 145 mmol/L (136-1 45) 01/19/21 03:56 Potassium 3.9 mmol/L (3.5-5 .1) 01/19/21 03:56 Chloride 113 mmol/L (98-10 7) H 01/19/21 03:56 Carbon Dioxide 25 mmol/L (22-29) 01/19/21 03:56 Anion Gap 10.9 (5-19) 01/19/21 03:56 BUN 26 mg/dL (8-23) H 01/19/21 03:56 Creatinine 1.0 mg/dL (0.5-0. 9) H 01/19/21 03:56 GFR Calculation Not Reportable 01/19/21 03:56 Glucose 88 mg/dL (65-115) 01/19/21 03:56 POC Glucose 110 mg/dL (70-110 ) 01/16/21 18:31 Estimat Average Gl ucose 82 01/18/21 03:47 Hemoglobin A1c 4.5 % (4.0-6.0) 01/18/21 03:47 Calculated Osmolal ity 304 mOsm/kg (285- 295) H 01/19/21 03:56 Lactic Acid 1.0 mmol/L (0.5-2 .2) 01/16/21 17:35 Calcium 7.3 mg/dL (8.5-10 .5) L 01/19/21 03:56 Iron 23 ug/dL (37-145) L 01/17/21 04:10 TIBC 242 mcg/dl 01/17/21 04:10 % Saturation 9.5 % (20-50) L 01/17/21 04:10 Unsat Iron Binding 219 ug/dL (112-34 7) 01/17/21 04:10 Total Bilirubin 0.6 mg/dL (0.15-1 .2) 01/19/21 03:56 AST 13 U/L (0-32) 01/19/21 03:56 ALT 7 U/L (0-33) 01/19/21 03:56 Alkaline Phosphata se 152 IU/L (35-105) H 01/19/21 03:56 Creatine Kinase 50 U/L (26-192) 01/16/21 17:35 Troponin T Baselin e 34 ng/L (0-10) H 01/16/21 17:35 Troponin T 120 Min yanet 30.46 ng/L (0-10) H 01/16/21 20:00 Delta Troponin T -3.54 ABS# (0-10) L 01/16/21 20:00 Troponin T Hi Sens 6Hr 32.58 ng/L (0-10) H 01/16/21 23:10 Troponin T Hi Sens 6Hr Delta -1.42 ng/L (0-12) L 01/16/21 23:10 NT-Pro-B Natriuret Pep 5842 pg/mL (0-450 ) H 01/16/21 17:35 Total Protein 5.1 g/dL (6.6-8.7 ) L 01/19/21 03:56 Albumin 2.5 g/dL (3.5-5.2 ) L 01/19/21 03:56 Globulin 2.6 g/dL (1.3-4.6 ) 01/19/21 03:56 Vitamin B12 532 pg/mL (232-12 45) 01/18/21 08:13 Folate 4.8 ng/mL (4.8-37 .3) 01/18/21 08:13 Procalcitonin 0.53 ng/mL (0-0.5 ) H 01/17/21 04:10 TSH 1.14 uIU/mL (0.27 -4.20) 01/17/21 04:10 TSH Cancelled 01/17/21 04:10 Urine Color Yellow (Yellow) 01/17/21 13:00 Urine Appearance Clear (CLEAR) 01/17/21 13:00 Urine pH 5 (5-7) 01/17/21 13:00 Ur Specific Gravit y 1.020 (1.005-1.0 30) 01/17/21 13:00 Urine Protein Neg (Negative) 01/17/21 13:00 Urine Glucose (UA) Norm (Normal) 01/17/21 13:00 Urine Ketones Negative (Negati ve) 01/17/21 13:00 Urine Blood Neg (Negative) 01/17/21 13:00 Urine Nitrate Negative (Negati ve) 01/17/21 13:00 Urine Bilirubin Neg (Negative) 01/17/21 13:00 Urine Urobilinogen Norm mg/dL (Negat rod) 01/17/21 13:00 Ur Leukocyte Neva ase Negative (Negati ve) 01/17/21 13:00 Nasal/Oral COVID-1 9 PCR Not detected 01/16/21 14:37 Influenza Type A A g Negative (Negati ve) 01/17/21 13:00 Influenza Type B A g Negative (Negati ve) 01/17/21 13:00 SARS-CoV-2 Ag (Rap id) Negative (Negati ve) 01/16/21 14:37 Blood Type A Positive 01/18/21 08:13 Rho(D) Type Positive 01/18/21 08:13 Antibody Screen Negative 01/18/21 08:13 Crossmatch See Detail 01/18/21 08:13 Impressions Chest X-Ray 01/16/21 14:12 IMPRESSION: Blunting of right costophrenic angle which may represent trace pleural effusion. Chest CTA 01/17/21 00:33 IMPRESSION: 1. No pulmonary embolism. 2. Patchy opacities are present in the right middle and lower lobes and may be secondary to pneumonia. 3. Mild atherosclerotic disease of the aorta without aneurysm. 4. Small hiatal hernia. 5. Small bilateral pleural effusions. 6. 8 mm calcified splenic artery aneurysm. 7. Age indeterminate compression fractures are present at T11 and L1. Radiation Dose CTDIVOL = (mGy): DLP = 316.6 (mGy-cm) Echocardiogram: CONCLUSIONS LV systolic function is normal with EF of 55 to 60%. Diastolic function is indeterminate. Left atrium is dilated Right atrial pressure is dilated Mild mitral regurgitation. Compared to prior echocardiogram from 12/07/2013, no significant changes are noted Senthil Chan MD (Electronically Signed) Final Date: 18 January 2021 14:50 S Vitals: Last Vital Signs Temp 98.2 F 01/19/21 03:18 Pulse 74 01/19/21 08:00 Resp 20 H 01/19/21 08:00 BP 157/74 01/19/21 08:00 Pulse Ox 96 01/19/21 08:00 Discharge Plan Discharge Patient Disposition: Xfer Other Condition: Stable Prescriptions: New ferrous gluconate 324 mg (37.5 mg iron) Tablet 324 mg PO BIDWM 30 Days Qty: 60 RF: 0 Protonix 40 mg tablet,delayed release (DR/EC) 40 mg PO BID 14 Days Qty: 28 RF: 0 Augmentin 500-125 mg tablet 1 tab PO BID 3 Days Qty: 6 RF: 0 levofloxacin 500 mg tablet 500 mg PO Q48H 3 Days Qty: 2 RF: 0 Continued sotalol 80 mg tablet 80 mg PO BID 90 Days Qty: 180 RF: 3 losartan 25 mg tablet 25 mg PO QAM RF: 0 acetaminophen 325 mg Tablet 650 mg PO Q6H PRN (Reason: Pain) RF: 0 bisacodyl 10 mg Suppository 10 mg MN DAILY PRN (Reason: Constipation) RF: 0 docusate sodium 100 mg Capsule 200 mg PO BEDTIME RF: 0 Mylanta 200-200-20 mg/5 mL Suspension 30 ml PO Q4H PRN (Reason: Heartburn) RF: 0 tramadol 50 mg tablet 50 mg PO Q6H PRN (Reason: pain) RF: 0 Changed Xarelto 20 mg tablet 10 mg PO DAILY@0800 Qty: 0 RF: 0 atorvastatin 40 mg tablet 20 mg PO DAILY Qty: 0 RF: 0 Milk of Magnesia 400 mg/5 mL Suspension 30 ml PO DAILY 14 Days Qty: 300 RF: 0 Discontinued Imodium A-D 2 mg Tablet 4 mg PO QID PRN (Reason: Diarrhea) RF: 0 Discharge Orders: Discharge Order (Routine); Ordered 01/19/21 Ordered By: Sarath Sahu Referrals: Rosy De Los Santos FNP [Primary Care Provider] - 4-7 days Gurwinder Bean MD [Physician] - 2 weeks (possible EGD, colonoscopy. ) Discharge Diet: Cardiac Discharge Activity: Resume usual activity and Increase activity as tolerated Patient Instructions: Amoxicillin/Clavulanate Potassium (By mouth), Levofloxacin (By mouth), Pantoprazole (By mouth), Ascorbic Acid/Cyanocobalamin/Ferrous Fumarate (By mouth), Opioid Safety Activity Restrictions/Additional Instructions: Patient was advised to take aggressive bowel regimen as directed. Patient is advised to be more mobile and increase activity as much as possible with physical therapy. Patient advised to take Augmentin for next 3 days. She supposed to take it morning and evening. Patient advised to take Levaquin for next 3 days. She is to take it every 48 hours. Patient is advised to make sure she maintains her oral hydration. Please follow-up with your primary care provider for repeat CBC next 1 week. Please follow-up with Dr. Bean from surgery within next 2 weeks for possible EGD and colonoscopy. Discharge Attestations Time Spent in Discharge Care*: greater than 30 min Specific Discharge Activities: educating patient, educating and/or supporting family/caregiver, discussing with cable machine operator/social workers/dc planners, documenting/other paperwork and evaluating patient/reviewing data Status at Discharge: Cognitive status at discharge: cognitively intact, Behavioral status at discharge: cooperative, Functional status at discharge: uses cane/walker Overall status at discharge: patient is back to baseline Quality Metrics Clinical Quality Measures During this hospital stay, did patient experience: None Coding Level of Care Code Acute Chg FW DC note Diagnoses Respiratory failure with hypoxia J96.01 Chronicity: acute Atrial fibrillation I48.91 Acute on chronic anemia D64.9 Essential hypertension I10 Malnutrition E46 Pleural effusion J90 Constipation K59.00
[2021-01-19] MEDS: budesonide 0.5 mg/2 mL Neb INHALATION (09:56)
[2021-01-19] MEDS: ipratropium-albuterol 3 mL Neb INHALATION (09:56)
--- NOTE | 2021-01-19 11:58 | PC.CHAP ---
Pastoral Care Encounter/Spiritual Assessment Type of Contact [] Declined chainman visit [] Patient/Family/Request visit [] Outpatient visit [XX] Follow-up visit [] Physician referral [] Code/Alert [] Routine visit [] Staff referral [] Actively dying [XX] Patient sleeping [] Family support [] [] Out of room [] Palliative care [] [] Receiving care in room [] Pre-surgical visit [] Trauma [] Long length of stay [] ICU visit [] Other: Relational/Emotional Strength [] Patient feels connected with others/family/visitors/staff [] Distress [] Loneliness/isolation [] Abandonment Spirituality of Patient [] Person of Katelyn [] Attends Christian of their Katelyn [] Believes in Prayer [] Reads Bible or Buddhist materials [] There are Spiritual issues to be addressed Equip Maint Eng Interventions [] Prayer [] Active listening [] Non-anxious presence [] Spiritual/emotional support [] Crisis/trauma care [] Spiritual counseling [] Bereavement support [] Provided bereavement packet [] Provided Bible/devotional materials [] Provided toy/stuffed animal, coloring book to patient or family member [] Provided Communion [] Anointing/Inez [] Salvation [] Completed spiritual assessment [] Other: Impact on Illness or Injury [] Angry [] Fearful [] Anxious [] Often cries [] Exhaustion [] Unable to work [] Unable to attend baptism [] Unable to walk/stand [] Unable to read [] Unable to drive [] Unable to eat/drink [] Unable to sleep [] Unable to be with family [] Patient intubated [] Other: Summary Time spent with patient
--- NOTE | 2021-01-19 13:33 | PC.NURSE ---
Discharge Note Patient discharged to [[facility] facility] via [private vehicle] accompanied by [daughter]. Discharge instructions reviewed with patient and/or food service representative. Mobile pharmacy medications and/or prescriptions provided. Belongings/home medications returned.
--- NOTE | 2021-01-21 14:45 | PC.SOCIAL ---
discharge follow up call made, spoke with patients nurse, Araseli. She reports pt isn't requiring O2 at this time. Nurse is aware of new medications and pt is taking those except for Iron, they are waiting for the pharmacy to have iron available. nurse is aware of changed and discontinued meds. patients follow up appointments made and given to nurse, they will transport patient to appointments.
== END 2021-01-19 12:30 | disposition skilled nursing facility (03) | DRG 193 ==
LOC: ER 19:32 → CSU 01-17 03:53
PROVIDERS: Family Medicine; Admitting Provider Student in an Organized Health Care Education/Training Program; Emergency Provider Emergency Medicine; PCP Nurse Practitioner Family; Visit Provider Student in an Organized Health Care Education/Training Program
DX: J18.9 Pneumonia, unspecified organism (principal); J96.01 Acute respiratory failure with hypoxia; J90 Pleural effusion, not elsewhere classified; J44.1 Chronic obstructive pulmonary disease with (acute) exacerbation; J44.0 Chronic obstructive pulmonary disease with (acute) lower respiratory infection; E46 Unspecified protein-calorie malnutrition; Z68.1 Body mass index [BMI] 19.9 or less, adult; M19.90 Unspecified osteoarthritis, unspecified site; I48.91 Unspecified atrial fibrillation; I69.919 Unspecified symptoms and signs involving cognitive functions following unspecified cerebrovascular disease; I12.9 Hypertensive chronic kidney disease with stage 1 through stage 4 chronic kidney disease, or unspecified chronic kidney disease; N18.9 Chronic kidney disease, unspecified; E78.5 Hyperlipidemia, unspecified; F17.210 Nicotine dependence, cigarettes, uncomplicated; Z96.659 Presence of unspecified artificial knee joint; K59.00 Constipation, unspecified; D50.9 Iron deficiency anemia, unspecified; D63.8 Anemia in other chronic diseases classified elsewhere
CPT/HCPCS: 36415; 36416; 36430; 36600; 71045; 71275; 74176; 80051; 80053; 81003; 82330; 82550; 82607; 82746; 82805; 82962; 83036; 83540; 83550; 83605; 83880; 84145; 84443; 84484; 85014; 85018; 85025; 85045; 85378; 86850; 86900; 86920; 87040; 87426; 87449; 87635; 87641; 87804; 93005; 93306; 94640; 96374; 96375; 97161; 97530; 99285; C9113; J0696; J1940; J3490; J7030; J7626; P9016; Q0144; Q9967

== ENCOUNTER → 2021-01-20 09:24 | Outpatient (BNVA) | payer MEDICARE, OTHER, SELFPAY | PROVIDERS: PCP Nurse Practitioner Family; Referring Provider Nurse Practitioner Family; Visit Provider Specialist | DX: S72.112A Displaced fracture of greater trochanter of left femur, initial encounter for closed fracture (principal); X58.XXXA Exposure to other specified factors, initial encounter; Z96.642 Presence of left artificial hip joint | CPT/HCPCS: 73502 ==

== ENCOUNTER → 2021-02-03 14:00 | Outpatient (BNVA) | payer MEDICARE, SELFPAY | PROVIDERS: PCP Nurse Practitioner Family; Visit Provider Surgery | DX: Z01.812 Encounter for preprocedural laboratory examination (principal); Z20.822 Contact with and (suspected) exposure to COVID-19 | CPT/HCPCS: 87635 ==

== ENCOUNTER 2021-02-06 09:13 | Day surgery (SDC) | payer MEDICARE, SELFPAY ==
[2021-02-03 14:32] VITALS: BMI 18.3
--- NOTE | 2021-02-06 09:41 | P.ANESASSM_ITS ---
Pre-Anesthetic Assessment Pre-Anesthetic Assessment: Height/Weight: Height 1.57 m Weight 45.359 kg Preop Diagnosis: panendoscopy Proposed Procedure: Operation Date: 02/06/21 11:00 Proposed Procedures s EGD 06096 96402 D50.9 R63.4 K59.00(Not Applicable) - Gurwinder Bean MD p Colonoscopy 52860 68050 D50.9 R63.4 K59.00(Not Applicable) - Gurwinder Bean MD Was Beta Ping taken within 24 hours: N/A Was Clonidine taken within 24 hours: N/A Social: Social History: No alcohol and No tobacco Exam: Pre-Anes Outpt Exam: alert and clear to auscultation bilaterally Airway: Submandibular: WNL Cervical ROM: WNL MP: 1 Dentition: False History/ROS: No significant complaints Pulmonary: Pulmonary: None reported CV/HEM: CV/HEM: Afib, Anemia, Arrythmia, CAD, HTN and PR : : None reported Hepatic: Hepatic: None reported Metabolic: Metabolic: Hyperlipidemia Musc/skel: Musc/skel: None reported Neuropsych: Neuropsych: Dementia Anesthetic Plan: ASA status: 2 Anesthesia: MAC Risk of > 500 ml blood loss (7ml/kg in children): No PFSH Anesthesia PFSH: Medical History (Updated 01/27/21 @ 15:33 by Gurwinder Bean MD) Acute on chronic anemia Arthritis Atrial fibrillation Cognitive dysfunction CVA (cerebral vascular accident) Essential hypertension Hyperlipidemia Pleural effusion Respiratory failure with hypoxia Temporal arteritis TIA (transient ischemic attack) Surgical History (Updated 01/27/21 @ 15:33 by Gurwinder Bean MD) History of bilateral hip arthroplasty S/P knee replacement S/P tonsillectomy S/P tubal ligation Family History Father CAD (coronary artery disease) Mother CAD (coronary artery disease) Other Cancer Hypertension Social History Alcohol intake: current Alcohol intake frequency: 0-2 Drinks per Day Alcohol type: beer Lives independently: Yes Marital status: / Current occupational status: retired Current gender identity: Female Katelyn/Oriental Orthodox: Cheondoism Data Anesthesia Cardiac Studies: Echocardiogram 01/18/21
[2021-02-06 10:15] VITALS: BP 182/71; PULSE 65; RESP 18; TEMP 36.3; O2SAT 100
[2021-02-06] MEDS: sodium chloride 0.9% 1,000 ML 30 ML IV (10:18)
--- NOTE | 2021-02-06 11:56 | W.PM.OPSUD ---
Surgery/Procedure H&P Update DATE OF PROCEDURE: February 06, 2021 DATE H&P PERFORMED: 01/27/21 H&P UPDATE INFORMATION: I have reviewed H&P completed within last 30 days, I have examined patient prior to procedure and No changes to prior documentation PREOP DIAGNOSIS: panendoscopy PLANNED PROCEDURE: Operation Date: 02/06/21 11:00 Proposed Procedures s EGD 58550 19031 D50.9 R63.4 K59.00(Not Applicable) - Gurwinder Bean MD p Colonoscopy 21787 08330 D50.9 R63.4 K59.00(Not Applicable) - Gurwinder Bean MD
[2021-02-06 12:22] VITALS: BP 172/79; PULSE 83; RESP 16; TEMP 36.2; O2SAT 100
--- NOTE | 2021-02-06 12:24 | ANE.PACU2 ---
Inpatient post-anesthesia follow up: Airway intact: Yes Vital signs: Temperature 97.3 F Pulse Rate 65 Respiratory Rate 18 Blood Pressure 182/71 Pulse Oximetry 100 Oxygen Delivery Me thod Room Air Oxygen Flow Rate Fraction of Inspir ed Oxygen Hydration adequate: Yes Nausea and vomiting: No Pain level: 1 Mental status: Baseline
[2021-02-06 12:34] VITALS: BP 167/84; PULSE 66; RESP 18; O2SAT 96
== END 2021-02-06 13:07 | disposition home or self-care (01) ==
PROVIDERS: PCP Nurse Practitioner Family; Visit Provider Surgery
PROC: 0DJ08ZZ Inspection of Upper Intestinal Tract, Via Natural or Artificial Opening Endoscopic (ICD-10-PCS; CPT 43235; principal; 2021-02-06 11:00)
PROC: 0DJD8ZZ Inspection of Lower Intestinal Tract, Via Natural or Artificial Opening Endoscopic (ICD-10-PCS; CPT 45378; 2021-02-06 11:00)
DX: K59.00 Constipation, unspecified (principal); D50.9 Iron deficiency anemia, unspecified; Z68.1 Body mass index [BMI] 19.9 or less, adult; K22.2 Esophageal obstruction; K44.9 Diaphragmatic hernia without obstruction or gangrene; K57.30 Diverticulosis of large intestine without perforation or abscess without bleeding; K64.8 Other hemorrhoids; I25.10 Atherosclerotic heart disease of native coronary artery without angina pectoris; I10 Essential (primary) hypertension; I25.2 Old myocardial infarction; E78.5 Hyperlipidemia, unspecified; F03.90 Unspecified dementia, unspecified severity, without behavioral disturbance, psychotic disturbance, mood disturbance, and anxiety; I48.91 Unspecified atrial fibrillation; Z86.711 Personal history of pulmonary embolism; Z86.73 Personal history of transient ischemic attack (TIA), and cerebral infarction without residual deficits
CPT/HCPCS: 43235; 45378; 96360; 96361; J2704; J7030

== ENCOUNTER → 2021-02-11 16:05 | Outpatient (BNVA) | payer MEDICARE, SELFPAY | PROVIDERS: PCP Nurse Practitioner Family; Visit Provider Internal Medicine | DX: E78.5 Hyperlipidemia, unspecified (principal); Z79.01 Long term (current) use of anticoagulants; D64.9 Anemia, unspecified | CPT/HCPCS: 80048; 83880 ==

== ENCOUNTER → 2021-03-03 09:46 | Outpatient (BNVA) | payer MEDICARE, SELFPAY | PROVIDERS: PCP Nurse Practitioner Family; Visit Provider Specialist | DX: S72.112D Displaced fracture of greater trochanter of left femur, subsequent encounter for closed fracture with routine healing (principal); X58.XXXD Exposure to other specified factors, subsequent encounter | CPT/HCPCS: 73502 ==

== ENCOUNTER → 2021-03-04 10:14 | Outpatient (BNVA) | payer MEDICARE, SELFPAY | PROVIDERS: PCP Nurse Practitioner Family; Visit Provider Internal Medicine | DX: I50.9 Heart failure, unspecified (principal); E78.5 Hyperlipidemia, unspecified | CPT/HCPCS: 80048; 83880 ==

== ENCOUNTER → 2021-03-26 11:27 | Outpatient (BNVA) | payer MEDICARE, SELFPAY | PROVIDERS: PCP Nurse Practitioner Family; Visit Provider Internal Medicine | DX: E78.5 Hyperlipidemia, unspecified (principal); I48.91 Unspecified atrial fibrillation; I10 Essential (primary) hypertension; Z79.01 Long term (current) use of anticoagulants | CPT/HCPCS: 80048; 83880 ==

== ENCOUNTER 2021-07-10 10:52 | Emergency (ER) | payer MEDICARE, SELFPAY ==
--- NOTE | 2021-07-10 11:04 | XR_ITS ---
WS: [id number] XR chest 1V portable [id number] REASON FOR EXAM: altered mental status FINDINGS: Mild tortuosity the thoracic aorta without aneurysmal dilatation. Normal heart size. Calcified granulomatous disease in both hemithoraces. No acute pulmonary parenchymal or pleural abnormality is identified. Mild degenerative spondylosis in the mid and lower thoracic spine. XR/XR chest 1V portable [id number] IMPRESSION: No acute chest abnormality.
--- NOTE | 2021-07-10 11:04 | CTR_ITS ---
PROCEDURE INFORMATION: Exam: CT Head Without Contrast Exam date and time: 07/10/2021 11:16 AM Age: 81 years old Clinical indication: Pain; Other: Collapsed and non responsive; Additional info: Symptoms of acute stroke TECHNIQUE: Imaging protocol: Computed tomography of the head without contrast. Radiation optimization: All CT scans at this facility use at least one of these dose optimization techniques: automated exposure control; mA and/or kV adjustment per patient size (includes targeted exams where dose is matched to clinical indication); or iterative reconstruction. Other technique: STROKE PROTOCOL was implemented. COMPARISON: CT head wo con* [id number] 12/30/2020 4:02 PM RADIATION DOSE METRICS: Total DLP (mGy-cm): 833.93 FINDINGS: Brain: There is a left large thalamic hemorrhage extending into the left parietal lobe. The hemorrhage maximally measures 37 x 27 mm with surrounding edema. There is buckling of the midline to the right 3.5 mm. Moderate to severe central and cortical atrophy and small vessel ischemic disease. Cerebral ventricles: There is blood within both lateral ventricles left greater than right as well as blood within the 3rd ventricle. There may be a small amount blood in the 4th ventricle as well. Paranasal sinuses: Visualized sinuses are unremarkable. No fluid levels. Mastoid air cells: Visualized mastoid air cells are well aerated. Bones/joints: Unremarkable. No acute fracture. Soft tissues: Unremarkable. CT/CT head wo con* [id number] IMPRESSION: Left thalamic in periventricular bleed with interventricular blood in right-sided midline shift. Considerations include hypertensive bleed versus an aneurysm rupture. ASSESSMENT: ASPECTS ([facility] Stroke Program Early CT Score) does not apply.
--- NOTE | 2021-07-10 11:04 | ECG_ITS ---
[facility] Test Date: 2021-07-10 Pat Name: Radha Gonzalez Department: Room: Gender: Female Arc Welder: : 1940 Requested By: Ubaldo Nava Order Number: [id number] Maya MD: Diana Hudson M.D. Measurements Intervals [place] Rate: 63 P: WI: QRS: 54 QRSD: 89 T: 71 QT: 425 QTc: 436 Interpretive Statements Normal sinus rhythm with some nonspecific T wave changes ABNORMAL RHYTHM ECG Compared to ECG 01/16/2021 20:17:42 Sinus rhythm no longer present Sinus arrhythmia no longer present Electronically Signed On 07-10-2021 21:47:22 CDT by Diana Hudson M.D. [id number]
--- NOTE | 2021-07-10 11:12 | PC.NURSE ---
PT TO CT VIA STRETCHER AND FLIGHT TEST MECHANIC.
[2021-07-10 11:15] VITALS: BP 200/81; PULSE 64; RESP 19; TEMP 36.3; O2SAT 95; BMI 17.2
[2021-07-10 11:18] LABS: Basophils # 0.1 10^3/uL (0.0-0.1); Eosinophils # 0.6 10^3/uL (0.0-0.8); Eosinophils % 9.4 %; Hematocrit 35.1 % (37.0-47.0); Lymphocytes # 2.3 10^3/uL (0.8-4.8); Mean Corpuscular HGB Conc 34.2 g/dL (30.0-36.0); Mean Corpuscular Hemoglobin 35.9 pg (28.0-34.0); Mean Corpuscular Volume 105.1 fl (81-99); Mean Platelet Volume 10.5 fL (7.4-10.4); Monocytes # 0.9 10^3/uL (0.2-0.9); Monocytes % 15.4 %; Neutrophils # 2.14 10^3/uL (1.8-7.7); Neutrophils % 35.9 %; Nucleated Red Blood Cells % 0 %; Platelet Count 175 10^3/cmm (130-400); Red Blood Count 3.34 10^6/uL (4.1-5.3); Red Cell Distribution Width 13.1 % (12.1-15.1)
--- NOTE | 2021-07-10 11:22 | PC.NURSE ---
PT IS ON CONTINUOUS SPO2, NIBP, AND CM.
--- NOTE | 2021-07-10 11:35 | PC.NURSE ---
RT AT BEDSIDE SETTING UP FOR INTUBATION.
[2021-07-10] MEDS: ondansetron 2 mg/ML SDV 2 mL 4 MG IVP (11:38)
[2021-07-10] MEDS: labetalol 5 mg/mL SDV 20mL 10 MG IVP (11:39)
[2021-07-10] MEDS: sodium chloride 0.9% 500 ML 999 ML IV (11:39)
--- NOTE | 2021-07-10 11:40 | PC.NURSE ---
DR. GUO AT BEDSIDE SPEAKING WITH PT FAMILY.
[2021-07-10] MEDS: succinylcholine 20 mg/mL SDV 10mL 100 MG IVP (11:46)
--- NOTE | 2021-07-10 11:49 | PC.NURSE ---
PT INTUBATED 23 AT [facility] BY DR. GUO
--- NOTE | 2021-07-10 11:51 | XRR_ITS ---
PROCEDURE INFORMATION: Exam: XR Chest Exam date and time: 07/10/2021 11:17 AM Age: 81 years old Clinical indication: Device placement; Ett placement (vent status); Additional info: Et placement TECHNIQUE: Imaging protocol: XR of the chest. Views: 1 view. COMPARISON: CR XR chest 1V portable [id number] 07/10/2021 10:10 AM FINDINGS: Tubes, catheters and devices: There is an endotracheal tube 31 mm above the kizzy. There is a feeding tube with its tip off the bottom edge of the radiograph. Lungs: Unremarkable. No consolidation. Pleural spaces: Unremarkable. No pleural effusion. No pneumothorax. Heart/Mediastinum: Unremarkable. No cardiomegaly. Bones/joints: Unremarkable. XR/XR chest 1V portable [id number] IMPRESSION: No acute findings.
[2021-07-10 11:55] VITALS: RESP 14
--- NOTE | 2021-07-10 12:05 | ED_ITS ---
HPI - Neuro Symptoms/Deficit General: Chief Complaint: Neuro Symptoms/Deficit Stated Complaint: unconscious Time Seen by Provider: 07/10/21 11:04 History of Present Illness: 81-year-old female presents to emergency department with her family chief complaint of altered mentation. Last known well was about a half an hour prior to arrival she has been taken care of by a caregiver she has a prior history of stroke with no residual deficits mild confusion she is on Xarelto for underlying heart condition. Per family they were contacted by the caregiver as patient had had an episode of unresponsiveness that has continued. Per family she sustained no trauma nor injury or had any prior injury prior to the unresponsiveness Associated symptoms: Deny chest pain, malaise, nausea or vomiting Review of Systems General: Reports: 10 or more systems reviewed and unremarkable except in HPI and below Const: Denies: fever(s), chills, fatigue or malaise Eyes: Denies: change in vision or blurry vision Card: Denies: chest pain or palpitations Resp: Denies: dyspnea or productive cough GI: Denies: abdominal pain, nausea or vomiting : Denies: flank pain Musc: Denies: extremity pain or extremity swelling Skin/Breast: Denies: rash or pruritus Psych: Denies: anxiety or depression Neil/Lymph: Denies: easy bleeding All/Imm: Denies: urticaria, throat swelling or facial swelling PFSH ED PFSH: Medical History Acute on chronic anemia Arthritis Atrial fibrillation Cognitive dysfunction CVA (cerebral vascular accident) Essential hypertension Hyperlipidemia Pleural effusion Respiratory failure with hypoxia Temporal arteritis TIA (transient ischemic attack) Surgical History H/O esophagogastroduodenoscopy (02/06/21) hiatal hernia, esophageal stricture History of bilateral hip arthroplasty S/P knee replacement S/P tonsillectomy S/P tubal ligation Status post colonoscopy (02/06/21) diverticulosis Family History Father CAD (coronary artery disease) Mother CAD (coronary artery disease) Other Cancer Hypertension Social History Smoking and tobacco status: current every day smoker cigarettes Alcohol intake: current Alcohol intake frequency: 0-2 Drinks per Day Alcohol type: beer Lives independently: Yes Marital status: / Current occupational status: retired Current gender identity: Female Katelyn/Judaism: Jainism Physical Exam Narrative: EXAM NARRATIVE: On arrival patient is unresponsive has movement to painful stimuli with waxing and waning responsiveness with a gag reflex with a current GCS of 9, HENMT: COMMON NORMALS: normocephalic and atraumatic HEAD & SCALP: normocephalic and atraumatic Eye: COMMON NORMALS: Equal, round and reactive pupils present and EOMs intact bilaterally PUPIL: Yes Equal, round and reactive pupils present Neck/C-Spine: COMMON NORMALS: full ROM, supple and no JVD Lymph: LYMPHATIC: no lymphadenopathy noted Chest: COMMONS NORMALS: normal inspection of the chest and normal palpation of entire chest wall Resp: COMMON NORMALS: normal respiratory effort, No retractions and clear to auscultation bilaterally EFFORT & INSPECTION: Yes able to speak in complete sentences and Yes symmetric chest movement AUSCULTATION: clear to auscultation bilaterally Cardio: COMMON NORMALS: no JVD, regular rate and regular rhythm RATE: re gular rate RHYTHM: regular rhythm GI: COMMON NORMALS: Normal to inspection, nondistended, normoactive bowel sounds present, Soft to palpation and non-tender INSPECTION: Yes normal to inspection PALPATION: Yes Soft to palpation : COMMON NORMALS: Yes no CVA tenderness BLADDER/KIDNEY EXAM: Yes no CVA tenderness Back/Pelvis: COMMON NORMALS: no CVA tenderness Extremity: COMMON NORMALS: normal to inspection and full ROM Neuro: OTHER: On evaluation patient's responses waxes and wanes with no obvious focal rodolfo rodeficits appreciated questionable right-sided decorticate posturing noted unable to accurately do a full NIH due to patient's reduced unresponsiveness. waxes and wanes no obvious focal neuro deficits appreciated questionable right- sided decorticate posturing noted unable to accurately do a full NIH due to patient's reduced unresponsiveness. Skin: COMMON NORMALS: no rashes or lesions noted GENERAL SKIN EXAM: no rashes or lesions noted Procedures Intubation Time out performed: Yes sedative: Etomidate Mg Given: 20 paralytic: Succinylcholine Mg Given: 100 Laryngoscope: fiber optic video scope ET Tube Size: 8 ET Tube Uncuffed: No Tube Secured Depth (cm): 23 Tube Secured Location: lips Tube Placement Confirmation: visualized tube passing through cords, equal breath sounds bilaterally, no breath sounds over epigastrium and confirmation by capnometry Patient Tolerated Procedure: well Intubation Complications: none Course Vital Signs: Vital signs: Vital Signs Temperature 97.3 F L 07/10/21 11:15 Pulse Rate 72 07/10/21 12:51 Respiratory Rate 16 07/10/21 12:51 Blood Pressure 151/65 07/10/21 12:51 Pulse Oximetry 99 07/10/21 12:51 MDM - Neuro Symptoms/Deficit Medical Decision Making Immediate concerns underlying stroke or bleed patient is quite hypertensive on exam. Immediately patient went on a CT which reveals a left thalamic periventricular bleed intraventricular bleed with left right-sided shift. Patient was started on Andexxa reversal agent for Xarelto blood pressure was controlled with labetalol push will be need to transfer to a higher level care with neurosurgical coverage. Due to patient's altered mental status may the mid the decision to intubate for airway protection as patient had vomited after coming back from CT which he had episode of unresponsiveness again patient underwent rapid sequence intubation please see note above spoke to [facility] about acceptance neurosurgery recommend going ER to ER Dr. Andujar in the ER accepted the patient patient was started on a labetalol drip as well as given Andexxa reversal agent for Xarelto. She will be going by air EMS due to the s everity of her condition. Patient was started on propofol for sedation. Lab Data : 07/10/21 11:00 07/10/21 12:[address] 07/10/21 11:04 IMPRESSION: Left thalamic in periventricular bleed with interventricular blood in right-sided midline shift. Considerations include hypertensive bleed versus an aneurysm rupture. ASSESSMENT: ASPECTS ([place] Stroke Program Early CT Score) does not apply. ADDENDUM: 07/10/21 1149 THIS REPORT CONTAINS FINDINGS THAT MAY BE CRITICAL TO PATIENT CARE. The findings were verbally communicated by me to KARLEE Cortes at 11:47 AM SEQUENCING MACHINE OPERATOR on 07/10/2021. The findings were acknowledged and understood. This will be conveyed to Dr Nava by the nurse. Chest X-Ray 07/10/21 11:51 IMPRESSION: No acute findings. Laboratory Results WBC 6.0 10^3/uL (4.0-10.0) 07/10/21 11:00 RBC 3.34 10^6/uL (4.1-5.3) L 07/10/21 11:00 Hgb 12.0 g/dL (11.5-15.3) 07/10/21 11:00 Hct 35.1 % (37.0-47.0) L 07/10/21 11:00 MCV 105.1 fl (81-99) H 07/10/21 11:00 MCH 35.9 pg (28.0-34.0) H 07/10/21 11:00 MCHC 34.2 g/dL (30.0-36.0) 07/10/21 11:00 RDW 13.1 % (12.1-15.1) 07/10/21 11:00 Plt Count 175 10^3/cmm (130-400) 07/10/21 11:00 MPV 10.5 fL (7.4-10.4) H 07/10/21 11:00 Neut % (Auto) 35.9 % 07/10/21 11:00 Lymph % (Auto) 38.0 % 07/10/21 11:00 Alfalfa % (Auto) 15.4 % 07/10/21 11:00 Eos % (Auto) 9.4 % 07/10/21 11:00 Baso % (Auto) 1.0 % 07/10/21 11:00 Neut # (Auto) 2.14 10^3/uL (1.8-7.7) 07/10/21 11:00 Lymph # (Auto) 2.3 10^3/uL (0.8-4.8) 07/10/21 11:00 Alfalfa # (Auto) 0.9 10^3/uL (0.2-0.9) 07/10/21 11:00 Eos # (Auto) 0.6 10^3/uL (0.0-0.8) 07/10/21 11:00 Baso # (Auto) 0.1 10^3/uL (0.0-0.1) 07/10/21 11:00 Nucleated RBC % (auto) 0 % 07/10/21 11:00 Nucleated RBCs # 0.0 /100WBC 07/10/21 11:00 PT 19.90 SECONDS (12.1-14.9) H 07/10/21 12:14 INR 1.65 (0.8-1.2) H 07/10/21 12:14 Sodium Cancelled 07/10/21 11:00 Potassium Cancelled 07/10/21 11:00 Chloride Cancelled 07/10/21 11:00 Carbon Dioxide Cancelled 07/10/21 11:00 Anion Gap Cancelled 07/10/21 11:00 BUN Cancelled 07/10/21 11:00 Creatinine Cancelled 07/10/21 11:00 GFR Calculation Cancelled 07/10/21 11:00 Glucose Cancelled 07/10/21 11:00 Calculated Osmolality Cancelled 07/10/21 11:00 Calcium Cancelled 07/10/21 11:00 Total Bilirubin Cancelled 07/10/21 11:00 AST Cancelled 07/10/21 11:00 ALT Cancelled 07/10/21 11:00 Alkaline Phosphatase Cancelled 07/10/21 11:00 Troponin T Baseline Cancelled 07/10/21 11:00 Total Protein Cancelled 07/10/21 11:00 Albumin Cancelled 07/10/21 11:00 Globulin Cancelled 07/10/21 11:00 Urine Color Straw (Yellow) 07/10/21 12:10 Urine Appearance Clear (CLEAR) 07/10/21 12:10 Urine pH 7 (5-7) 07/10/21 12:10 Ur Specific [place] 1.005 (1.005-1.030) 07/10/21 12:10 Urine Protein Neg (Negative) 07/10/21 12:10 Urine Glucose (UA) Norm (Normal) 07/10/21 12:10 Urine Ketones Negative (Negative) 07/10/21 12:10 Urine Blood Neg (Negative) 07/10/21 12:10 Urine Nitrate Negative (Negative) 07/10/21 12:10 Urine Bilirubin Neg (Negative) 07/10/21 12:10 Urine Urobilinogen Norm mg/dL (Negative) 07/10/21 12:10 Ur Leukocyte Esterase Negative (Negative) 07/10/21 12:10 Urine Opiates Screen Negative ng/mL (Negative) 07/10/21 12:10 Ur Barbiturates Screen Negative ng/mL (Negative) 07/10/21 12:10 Ur Phencyclidine Scrn Negative ng/mL (Negative) 07/10/21 12:10 Ur Amphetamines Screen Negative ng/mL (Negative) 07/10/21 12:10 U Benzodiazepines Scrn Negative ng/mL (Negative) 07/10/21 12:10 Urine Cocaine Screen Negative ng/mL (Negative) 07/10/21 12:10 U Marijuana (THC) Screen Negative ng/mL (Negative) 07/10/21 12:10 Discharge Plan Discharge Patient Disposition: Transfer to ED Clinical Impression: Subarachnoid bleed, Closed intraventricular hemorrhage, Acute alteration in mental status Condition: Critical Prescriptions: No Action Xarelto 20 mg tablet 20 mg PO DAILY 0RF sotalol 120 mg tablet 60 mg PO BID Qty: 90 3RF montelukast [Singulair] 10 mg tablet 10 mg PO BEDTIME 0RF furosemide [Lasix] 20 mg tablet 20 mg PO BID Qty: 90 3RF losartan 25 mg tablet 25 mg PO QAM 0RF atorvastatin 40 mg tablet 40 mg PO DAILY 0RF docusate sodium 100 mg Capsule 200 mg PO BEDTIME 0RF ferrous gluconate 324 mg (38 mg iron) Tablet 324 mg PO BID 0RF Referrals: Rosy De Los Santos, LAW RESEARCHER [Primary Care Provider] - Coding Level of Care Code ED Conductor [employer]ymph[employer] for Chg Fwd Exam Comprehensive
[2021-07-10] MEDS: propofol 1,000 MG/100 ML INJ 4.08 MG IV (12:08)
[2021-07-10] MEDS: factor xa, inactivated-zhzo 800 MG in empty flexible container 1 EACH, non-DEHP filter ... 180 MG IV (12:23)
[2021-07-10 12:37] LABS: Add Urine Microscopic? NO; Charge for UA Resulting for Rev
--- NOTE | 2021-07-10 12:42 | PC.NURSE ---
PHARMACY INFORMED OF NEED OF VITAMIN K AND MAINTENANCE DOSE OF FACTOR XA.
--- NOTE | 2021-07-10 12:44 | PC.NURSE ---
LABETALOL DRIP PROVIDED BY PHARMACY.
[2021-07-10 12:51] VITALS: BP 151/65; PULSE 72; RESP 16; O2SAT 99
[2021-07-10 12:51] LABS: Bilirubin Urine Neg (Negative); Blood Urine Neg (Negative); Glucose Urine UA Norm (Normal); Ketones Urine Negative (Negative); Leukocyte Esterase Urine Negative (Negative); Nitrate Urine Negative (Negative); Protein Urine Neg (Negative); Specific Gravity, Urine 1.005 (1.005-1.030); Urine Appearance Clear (CLEAR); Urine Color Straw (Yellow); Urobilinogen Urine Norm (Negative); pH Urine 7 (5-7)
[2021-07-10 12:56] LABS: Amphetamines Screen Urine Negative (Negative); Barbiturates Screen Urine Negative (Negative); Benzodiazepines Screen Urine Negative (Negative); Cocaine Screen Urine Negative (Negative); Opiate Screen Urine Negative (Negative); PCP Screen Urine Negative (Negative); THC Screen Urine Negative (Negative)
[2021-07-10 12:58] LABS: INR 1.65 (0.8-1.2)
[2021-07-10 12:59] LABS: Partial Thromboplastin Time 30.6 SECONDS (23.9-36.7)
[2021-07-10 13:08] LABS: Troponin(5th) Baseline 17 ng/L (0-10)
[2021-07-10 13:10] LABS: Albumin Level 4.1 g/dL (3.5-5.2); Alkaline Phosphatase 80 IU/L (35-105); Blood Urea Nitrogen 12 mg/dL (8-23); Calcium 8.6 mg/dL (8.5-10.5); Carbon Dioxide 24 mmol/L (22-29); Chloride 95 mmol/L (98-107); Creatinine Clr Calc Pharmacy 26.7744; Globulin 2.2 g/dL (1.3-4.6); Glucose 124 mg/dL (65-115); Osmolality Calculated 271 mOsm/kg (285-295); Sodium 130 mmol/L (136-145); Total Bilirubin 0.8 mg/dL (0.15-1.2); Total Protein 6.3 g/dL (6.6-8.7)
[2021-07-10 13:11] LABS: Alanine Aminotransferase 15 U/L (0-33); Anion Gap 16.1 (5-19); Aspartate Amino Transferase 34 U/L (0-32); Potassium 5.1 mmol/L (3.5-5.1)
--- NOTE | 2021-07-10 13:18 | PC.NURSE ---
PHARMACY PROVIDED FLIGHT CREW WITH FACTOR XA AND VITAMIN K.
[2021-07-10] MEDS: factor xa, inactivated-zhzo 960 MG in empty flexible container 1 EACH, non-DEHP filter ... 48 MG IV (13:20)
[2021-07-10 13:37] LABS: Glucose Point of Care 99 mg/dL (70-110)
[2021-07-10 13:43] LABS: SARS Covid-2 Antigen Negative (Negative)
== END 2021-07-10 13:58 ==
PROVIDERS: Emergency Provider Emergency Medicine; PCP Nurse Practitioner Family
DX: I60.9 Nontraumatic subarachnoid hemorrhage, unspecified (principal); I61.5 Nontraumatic intracerebral hemorrhage, intraventricular; Z86.73 Personal history of transient ischemic attack (TIA), and cerebral infarction without residual deficits; I10 Essential (primary) hypertension; E78.5 Hyperlipidemia, unspecified; F17.210 Nicotine dependence, cigarettes, uncomplicated; Z20.822 Contact with and (suspected) exposure to COVID-19
CPT/HCPCS: 31500; 36416; 51702; 70450; 71045; 80053; 80306; 81003; 82962; 84484; 85025; 85610; 85730; 87426; 93005; 94002; 94799; 96365; 96366; 96375; 99291; J0330; J2405; J2704; J3490; J7040; J7169